=== PATIENT | male | born 1950 | race Caucasian/White ===

== ENCOUNTER 2019-01-25 03:08 | Emergency (ER) | payer OTHER ==
--- NOTE | 2019-01-25 03:49 | ER ---
Nurse's Notes [facility] Name: Damaso Campos Age: 69 yrs Sex: Male : 1950 Arrival Date: 01/25/2019 Time: 03:09 Bed 16 Private MD: Darío Mcfarlane T Diagnosis: Left facial swelling;Gingivitis;Dental Caries Presentation: 01/25 03:12 Presenting complaint: Patient states: that he is having swelling to left side of his face due to possible abscessed tooth. Transition of care: patient was not received from another setting of care. Onset of symptoms was January 24, 2019. Risk Assessment: Do you want to hurt yourself or someone else? Patient reports no desire to harm self or others. Initial Sepsis Screen: Does the patient meet any 2 criteria? HR > 90 bpm. Yes Does the patient have a suspected source of infection? No. Patient's initial sepsis screen is negative. Care prior to arrival: None. 03:12 Method Of Arrival: Ambulatory 03:12 Acuity: MYKEL 4 fc Historical: - Allergies: 03:21 Adhesives; fc - Home Meds: 03:21 triamterene-hydrochlorothiazid 37.5-25 mg Oral cap 1 cap once daily [Active]; meloxicam fc 15 mg oral tab 1 tab once daily [Active]; losartan 50 mg oral tab 1 tab once daily [Active]; - PMHx: 03:21 Hypertension; prostate cancer; Arthritis; fc - PSHx: 03:21 prostate removal; Knee surgery; Hernia repair; AVM; fc - Immunization history:: Last tetanus immunization: up to date. - Social history:: Smoking status: Patient/guardian denies using tobacco, Patient uses alcohol, occasionally. - Ebola Screening: : Patient negative for fever greater than or equal to 101.5 degrees Fahrenheit, and additional compatible Ebola Virus Disease symptoms Patient denies exposure to infectious person Patient denies travel to an Ebola-affected area in the 21 days before illness onset. Screenin:19 Abuse screen: Denies threats or abuse. Nutritional screening: No deficits noted. fc Tuberculosis screening: No symptoms or risk factors identified. Fall Risk None identified. Assessment: 03:20 General: Appears in no apparent distress. uncomfortable, Behavior is calm, cooperative, rr5 appropriate for age. Pain: Complains of pain in left side of the face Pain does not radiate. Pain currently is 3 out of 10 on a pain scale. Quality of pain is described as aching, Pain began suddenly, Is intermittent. Neuro: Level of Consciousness is awake, alert, obeys commands, Oriented to person, place, time, situation, Appropriate for age. Cardiovascular: Capillary refill < 3 seconds Patient's skin is warm and dry. Respiratory: Airway is patent Respiratory effort is even, unlabored, Respiratory pattern is regular, symmetrical. GI: No signs and/or symptoms were reported involving the gastrointestinal system. : No signs and/or symptoms were reported regarding the genitourinary system. EENT: left face swelling. Reports looks I'm having tooth abscess.. 03:20 Derm: Skin is intact, Skin temperature is warm. Musculoskeletal: Circulation, motion, rr5 and sensation intact. Capillary refill < 3 seconds, Range of motion: intact in all extremities. 04:04 Reassessment: Patient and/or family updated on plan of care and expected duration. Pain ea level reassessed. Patient is alert, oriented x 3, equal unlabored respirations, skin warm/dry/pink. Discharge instructions given to patient, verbalized the understanding of instruction. Pt left ED ambulatory accompanied by significant other. Pt tolerating well. Vital Signs: 03:12 BP 142 / 98; Pulse 91; Resp 18; Temp 98.6(TE); Pulse Ox 96% on R/A; Weight 127.01 kg fc (R); Height 6 ft. 0 in. (182.88 cm) (R); Pain 4/10; 03:37 BP 135 / 93; Pulse 77; Resp 19; Pulse Ox 97% on R/A; rr5 03:12 Body Mass Index 37.97 (127.01 kg, 182.88 cm) ED Course: 03:09 Patient arrived in ED. am2 03:10 Darío Mcfarlane MD is Private Physician. am2 03:12 Arm band placed on Patient placed in an exam room, on a stretcher. fc 03:18 Triage completed. fc 03:19 Patient has correct armband on for positive identification. Bed in low position. Call light in reach. 03:29 Natasha Dao RN is Primary Nurse. ea 03:32 Yuri Harris MD is Attending Physician. ps1 04:03 No provider procedures requiring assistance completed. Patient did not have IV access ea during this emergency room visit. Administered Medications: 03:46 Drug: Decadron 10 mg {Note: medication administered PO in juice.} Route: IM; Site: ea Other; 04:03 Follow up: Response: Medication administered at discharge. ea 03:47 Drug: Clindamycin 300 mg Route: PO; ea 04:03 Follow up: Response: Medication administered at discharge. ea 04:02 Drug: [place] (7.5 mg-325 mg) 1 tabs Route: PO; ea 04:03 Follow up: Response: Medication administered at discharge. ea Outcome: 03:48 Discharge ordered by MD. ps1 04:04 Discharged to home ambulatory, with significant other. ea 04:04 Condition: good 04:04 Discharge instructions given to patient, Instructed on discharge instructions, follow up and referral plans. medication usage, Demonstrated understanding of instructions, follow-up care, medications, Prescriptions given X 4. 04:06 Patient left the ED. ea Signatures: Natasha Calderon RN RN Keena Lynn Elena RN Yuri Nava ea, MD MD ps1 Roque, Raymond RN RN rr5 Corrections: (The following items were deleted from the chart) 03:37 03:20 EENT: left face swelling. rr5 rr5
--- NOTE | 2019-01-25 03:49 | EDPHYS ---
Physician Documentation [facility] Name: Damaso Campos Age: 69 yrs Sex: Male : 1950 Arrival Date: 01/25/2019 Time: 03:09 Bed 16 Private MD: Darío Mcfarlane T ED Physician Yuri Harris HPI: 01/25 03:44 This 69 yrs old Male presents to ER via Ambulatory with complaints of Abscess ps1 - face. 03:44 patient has a bad left upper tooth. Patient states that he has a facial ps1 abscess/swelling in the left face. Pain is mild to moderate and feels like fullness. No fever or cellulitic changes. No identifiable abscess or gumline changes. No fever. . Historical: - Allergies: 03:21 Adhesives; fc - Home Meds: 03:21 triamterene-hydrochlorothiazid 37.5-25 mg Oral cap 1 cap once daily [Active]; meloxicam fc 15 mg oral tab 1 tab once daily [Active]; losartan 50 mg oral tab 1 tab once daily [Active]; - PMHx: 03:21 Hypertension; prostate cancer; Arthritis; fc - PSHx: 03:21 prostate removal; Knee surgery; Hernia repair; AVM; fc - Immunization history:: Last tetanus immunization: up to date. - Social history:: Smoking status: Patient/guardian denies using tobacco, Patient uses alcohol, occasionally. - Ebola Screening: : Patient negative for fever greater than or equal to 101.5 degrees Fahrenheit, and additional compatible Ebola Virus Disease symptoms Patient denies exposure to infectious person Patient denies travel to an Ebola-affected area in the 21 days before illness onset. ROS: 03:44 Constitutional: Negative for fever, chills, and weight loss, Eyes: Negative for injury, ps1 pain, redness, and discharge, Cardiovascular: Negative for chest pain, palpitations, and edema, Respiratory: Negative for shortness of breath, cough, wheezing, and pleuritic chest pain, Abdomen/GI: Negative for abdominal pain, nausea, vomiting, diarrhea, and constipation, MS/Extremity: Negative for injury and deformity, Skin: Negative for injury, rash, and discoloration, Neuro: Negative for headache, weakness, numbness, tingling, and seizure. 03:44 ENT: Positive for Gum pain left facial swelling. Exam: 03:44 Constitutional: This is a well developed, well nourished patient who is awake, alert, ps1 and in no acute distress. Head/Face: Normocephalic, atraumatic. Eyes: Pupils equal round and reactive to light, extra-ocular motions intact. Lids and lashes normal. Conjunctiva and sclera are non-icteric and not injected. Chest/axilla: Normal chest wall appearance and motion. Nontender with no deformity. No lesions are appreciated. Cardiovascular: Regular rate and rhythm. No gallops, murmurs, or rubs. Normal PMI, no JVD. No pulse deficits. Respiratory: Lungs have equal breath sounds bilaterally, clear to auscultation and percussion. No rales, rhonchi or wheezes noted. No increased work of breathing, no retractions or nasal flaring. Abdomen/GI: Soft, non-tender, with normal bowel sounds. No distension or tympany. No guarding or rebound. No evidence of tenderness throughout. MS/ Extremity: Pulses equal, no cyanosis. Neurovascular intact. Full, normal range of motion. Neuro: Awake and alert, GCS 15, oriented to person, place, time, and situation. Cranial nerves II-XII grossly intact. Sensory grossly intact. 03:44 ENT: External ear(s): are unremarkable, Nose: is normal, Mouth: Oral mucosa: normal, abscess, is not appreciated, Dental exam: dental caries, that is moderate, left facial swelling. . Vital Signs: 03:12 BP 142 / 98; Pulse 91; Resp 18; Temp 98.6(TE); Pulse Ox 96% on R/A; Weight 127.01 kg fc (R); Height 6 ft. 0 in. (182.88 cm) (R); Pain 4/10; 03:37 BP 135 / 93; Pulse 77; Resp 19; Pulse Ox 97% on R/A; rr5 03:12 Body Mass Index 37.97 (127.01 kg, 182.88 cm) fc MDM: MDM: 03:41 Patient medically screened. ps1 03:44 Data reviewed: vital signs, nurses notes, and as a result, I will discharge patient. ps1 Counseling: I had a detailed discussion with the patient and/or guardian regarding: the presence of at least one elevated blood pressure reading (>120/80) during this emergency department visit, the need for outpatient follow up, for definitive care, a dentist, to return to the emergency department if symptoms worsen or persist or if there are any questions or concerns that arise at home. Administered Medications: 03:46 Drug: Decadron 10 mg {Note: medication administered PO in juice.} Route: IM; Site: ea Other; 04:03 Follow up: Response: Medication administered at discharge. ea 03:47 Drug: Clindamycin 300 mg Route: PO; ea 04:03 Follow up: Response: Medication administered at discharge. ea 04:02 Drug: [place] (7.5 mg-325 mg) 1 tabs Route: PO; ea 04:03 Follow up: Response: Medication administered at discharge. ea Disposition: 01/25/19 03:48 Discharged to Home. Impression: Left facial swelling, Gingivitis, Dental Caries. - Condition is Stable. - Discharge Instructions: Skin Abscess. - Prescriptions for chlorhexidine gluconate 0.12 % Mucous Membrane mouthwash - place 15 milliliter by MUCOUS MEMBRANE route 2 times per day for 14 days after brushing teeth, swish in mouth for 30 seconds then spit out; 1 bottle. Clindamycin HCl 300 mg Oral Capsule - take 1 capsule by ORAL route every 6 hours for 10 days; 40 capsule. Tylenol- Codeine #3 300-30 mg Oral Tablet - take 2 tablet by ORAL route every 6 hours As needed; 30 tablet. Zofran 4 mg Oral Tablet - take 1 tablet by ORAL route every 12 hours As needed; 20 tablet. - Medication Reconciliation Form, Thank You Letter, Antibiotic Education, Prescription Opioid Use form. - Follow up: Private Physician; When: As needed; Reason: Further diagnostic work-up, Recheck today's complaints, Continuance of care, Re-evaluation by your physician. Follow up: Emergency Department; When: As needed; Reason: Fever > 102 F, Worsening of condition. - Problem is new. - Symptoms are unchanged. Signatures: Natasha Calderon RN RN fc Antunez, Elena, RN RN ea Singer, Phillip, MD MD ps1 Corrections: (The following items were deleted from the chart) 04:06 03:48 01/25/2019 03:48 Discharged to Home. Impression: Left facial swelling; ea Gingivitis; Dental Caries. Condition is Stable. Forms are Medication Reconciliation Form, Thank You Letter, Antibiotic Education, Prescription Opioid Use. Follow up: Private Physician; When: As needed; Reason: Further diagnostic work-up, Recheck today's complaints, Continuance of care, Re-evaluation by your physician. Follow up: Emergency Department; When: As needed; Reason: Fever > 102 F, Worsening of condition. Problem is new. Symptoms are unchanged. ps1
[2019-01-25] MEDS ORDERED: DEXAMETHASONE 10 MG/ML VIAL ONE (03:58)
[2019-01-25] MEDS ORDERED: CLINDAMYCIN HCL 150 MG CAP ONE (03:58)
[2019-01-25] MEDS ORDERED: HYDROCODONE/APAP 7.5/325 MG TAB ONE (04:16)
[2019-01-25 05:29] VITALS: TEMP 98.6
[2019-01-25 05:30] VITALS: BP 135/93; O2SAT 97
== END 2019-01-25 04:06 | disposition home or self-care (01) ==
LOC: ER 03:08
DX: K05.10 Chronic gingivitis, plaque induced (principal); K02.9 Dental caries, unspecified; I10 Essential (primary) hypertension; Z85.46 Personal history of malignant neoplasm of prostate; Z91.048 Other nonmedicinal substance allergy status
CPT/HCPCS: 96372; 99283; J1100

== ENCOUNTER 2020-09-14 16:32 | Inpatient (IN) | payer OTHER ==
--- NOTE | 2020-09-14 21:03 | RAD REPORT ---
EXAM DESCRIPTION: Marti Single View09/14/2020 7:36 pm CLINICAL HISTORY: Shortness of breath COMPARISON: 2013 FINDINGS: Mild to moderate bilateral pulmonary opacities The heart is normal size IMPRESSION: Mild to moderate bilateral pulmonary opacities probably pneumonia
[2020-09-14] MEDS ORDERED: NA CHLORIDE 0.9% 50 ML ONE (22:02)
[2020-09-14] MEDS ORDERED: dexAMETHasone 10 MG/ML VIAL ONE (22:02)
[2020-09-14] MEDS ORDERED: LEVALBUTEROL 1.25 MG/3 ML NEB ONE (22:02)
[2020-09-14 22:24] LABS: Absolute Lymphocytes (CBC) 0.8 K/uL (0.7-4.9); Basophils % 0.4 % (0-1.3); Lymphocytes % 11.2 % (15.3-44.8); MPV 9.2 fL (7.6-11.3); RBC Red Blood Cell Count 4.41 M/uL (4.33-5.43)
[2020-09-14 22:39] LABS: Albumin 3.4 g/dL (3.4-5.0); Bilirubin Total 0.9 mg/dL (0.2-1.0); Potassium 3.6 mmol/L (3.5-5.1); Protein, Total 7.9 g/dL (6.4-8.2)
[2020-09-14] MEDS ORDERED: NA CHLORIDE 0.9% 1,000 ML ONE (23:12)
--- NOTE | 2020-09-14 23:58 | ER ---
Nurse's Notes [facility] Name: Damaso Campos Age: 70 yrs Sex: Male : 1950 Arrival Date: 09/14/2020 Time: 16:36 Bed 20 Private MD: Darío Mcfarlane T Diagnosis: Coronavirus infection, unspecified;Hypoxia Presentation: 09/14 16:45 Chief complaint: Patient states: SOB on exertion and dry cough. Pt states "my oxygen is aa5 at 90-91% when I am just sitting but getting up and walking it goes down to 89% and I feel short of breath". Pt reports positive COVID-19 2 days ago. Coronavirus screen: cough unrelated to allergies, shortness of breath, Client presents with at least one sign or symptom that may indicate coronavirus-19. Standard/surgical mask placed on the client. Provider contacted for isolation considerations. Ebola Screen: Patient negative for fever greater than or equal to 101.5 degrees Fahrenheit, and additional compatible Ebola Virus Disease symptoms. Initial Sepsis Screen: Does the patient meet any 2 criteria? No. Patient's initial sepsis screen is negative. Does the patient have a suspected source of infection? Yes:. Risk Assessment: Do you want to hurt yourself or someone else? Patient reports no desire to harm self or others. Onset of symptoms was August 2020. 16:45 Acuity: MYKEL 3 aa5 16:45 Method Of Arrival: Wheelchair aa5 Historical: - Allergies: 16:49 Adhesives; aa5 - PMHx: 16:49 Arthritis; Hypertension; Prostate Cancer; aa5 - PSHx: 16:49 prostate removal; Knee surgery; Hernia repair; Arterial Vascular Malformation; aa5 - Immunization history:: Pneumococcal vaccine is not up to date, Flu vaccine is up to date. - Social history:: Smoking status: Patient denies any tobacco usage or history of. Screenin:17 Abuse screen: Denies threats or abuse. Denies injuries from another. Nutritional zb screening: No deficits noted. Tuberculosis screening: No symptoms or risk factors identified. Fall Risk None identified. Assessment: 22:00 General: Appears in no apparent distress. uncomfortable, Behavior is calm, cooperative, zb appropriate for age, Reports fever for > 3 days, feeling ill for > 3 days, fatigue for >3 days. Pain: Denies pain. Neuro: Level of Consciousness is awake, alert, obeys commands, Oriented to person, place, time, situation. Cardiovascular: Capillary refill < 3 seconds in bilateral fingers Patient's skin is warm and dry. Respiratory: Airway is patent Respiratory effort is even, unlabored, Respiratory pattern is tachypnea Breath sounds are diminished bilaterally. GI: Abdomen is round non-distended, obese, Reports diarrhea. : No signs and/or symptoms were reported regarding the genitourinary system. EENT: No signs and/or symptoms were reported regarding the EENT system. Derm: Skin is intact, is healthy with good turgor, Skin is dry, Skin is flushed, Skin temperature is warm. Musculoskeletal: Circulation, motion, and sensation intact. Capillary refill < 3 seconds, in bilateral fingers. Range of motion: intact in all extremities. 22:36 Reassessment: notified ECP of [facility] 547. zb 22:53 Reassessment: CL 84 laboratory radha called, ED provider aware. rr5 23:56 Reassessment: Patient appears in no apparent distress at this time. Patient and/or em family updated on plan of care and expected duration. Pain level reassessed. patient nc increased to 4L. desats to 88% on 3L. ECP notified. 09/15 00:10 Reassessment: Patient appears in no apparent distress at this time. Patient and/or em family updated on plan of care and expected duration. Pain level reassessed. placed on 5 LPM via NC SPO2 90-93%, denies shortness of breath. 01:30 Reassessment: Patient appears in no apparent distress at this time. Patient is alert, rr5 oriented x 3, equal unlabored respirations, skin warm/dry/pink. Vital Signs: 09/14 16:45 BP 107 / 65; Pulse 70; Resp 18 S; Temp 98.2(O); Pulse Ox 93% on R/A; Weight 133.81 kg aa5 (R); Height 5 ft. 11 in. (180.34 cm) (R); Pain 0/10; 22:19 BP 123 / 74; Pulse 72; Resp 20; Pulse Ox 93% ; zb 23:31 BP 123 / 53; Pulse 91; Resp 30; Pulse Ox 77% on R/A; dh4 23:57 Pulse 66; Resp 28; Pulse Ox 91% 4 lpm ; em 09/15 01:42 BP 143 / 81; Pulse 73; Resp 19; Pulse Ox 95% on 4 lpm NC; rr5 09/14 16:45 Body Mass Index 41.14 (133.81 kg, 180.34 cm) aa5 ED Course: 09/14 16:36 Patient arrived in ED. ag5 16:38 Darío Mcfarlane MD is Private Physician. ag5 16:45 Arm band placed on. aa5 16:47 Triage completed. aa5 20:08 Chest Single View XRAY In Process Unspecified. EDMS 21:04 Jeffy Martinez PA is PHCP. m 21:04 Harsha Haque MD is Attending Physician. jmm 21:08 Mai Flores RN is Primary Nurse. zb 22:17 Patient has correct armband on for positive identification. Pulse ox on. NIBP on. Door zb closed. Noise minimized. Warm blanket given. 22:17 Inserted saline lock: 20 gauge in left antecubital area, using aseptic technique. Blood zb collected. 23:15 CT Chest For PE Angio In Process Unspecified. EDMS 23:57 [facility] Abraham [facility] Hospitalizing Provider[facility] 09/15 01:50 No provider procedures requiring assistance completed. Patient admitted, IV remains in rr5 place. intact, No redness/swelling at site. Administered Medications: 09/14 22:16 Drug: Decadron - Dexamethasone 10 mg Route: IVP; Site: left antecubital; b 09/15 00:00 Follow up: Response: No adverse reaction em 09/14 22:16 Drug: Xopenex (3) 1.25 mg Route: Inhalation; zb 09/15 00:00 Follow up: Response: No adverse reaction em 09/14 23:56 Drug: NS 0.9% 1000 ml Route: IV; Rate: 1 bolus; Site: left antecubital; em 09/15 01:48 Follow up: IV Status: Completed infusion; IV Intake: 1000ml em Intake: 01:48 IV: 1000ml; Total: 1000ml. em Outcome: 09/14 23:58 Decision to Hospitalize by Provider. [facility] 09/15 01:43 Admitted to Tele accompanied by nurse, via wheelchair, room 414, with oxygen, with rr5 chart, Report called to mario Condition: stable Instructed on the need for admit. 01:55 Patient left the ED. rr5 Signatures: Dispatcher [employer] Jeffy Randall PA PA jmm Munoz, Edgar, RN RN Park Kaplan RN RN aa5 José Manuel Belle RN RN rr5 Rosaura Suarez Bryce Ngo [facility] Mai Flores RN RN zb
--- NOTE | 2020-09-14 23:58 | EDPHYS ---
Physician Documentation [facility] Name: Damaso Campos Age: 70 yrs Sex: Male : 1950 Arrival Date: 09/14/2020 Time: 16:36 Bed 20 Private MD: Darío Mcfarlane T ED Physician Harsha Haque HPI: 09/14 18:57 This 70 yrs old Male presents to ER via Wheelchair with complaints of jmm Shortness Of Breath, COVID+. 18:57 The patient has shortness of breath at rest. Onset: The symptoms/episode began/occurred jmm gradually, 2 day(s) ago. Duration: The symptoms are continuous. The patient's shortness of breath is aggravated by nothing, is alleviated by nothing. This is a 70 year old male with a history of HTN that presents to the ED with complaints of shortness of breath beginning approx 2 days ago. Positive for COVID. Patient is currently taking prednisone and azithromycin. . Historical: - Allergies: 16:49 Adhesives; aa5 - PMHx: 16:49 Arthritis; Hypertension; Prostate Cancer; aa5 - PSHx: 16:49 prostate removal; Knee surgery; Hernia repair; Arterial Vascular Malformation; aa5 - Immunization history:: Pneumococcal vaccine is not up to date, Flu vaccine is up to date. - Social history:: Smoking status: Patient denies any tobacco usage or history of. ROS: 18:57 Constitutional: Negative for fever, chills, and weight loss, Cardiovascular: Negative jmm for chest pain, palpitations, and edema. 18:57 Respiratory: Positive for cough, shortness of breath. 18:57 All other systems are negative. Exam: 18:57 Constitutional: This is a well developed, well nourished patient who is awake, alert, jmm and in no acute distress. Head/Face: atraumatic. Eyes: EOMI, no conjunctival erythema appreciated ENT: Moist Mucus Membranes Neck: Trachea midline, Supple Chest/axilla: Normal chest wall appearance and motion. Cardiovascular: Regular rate and rhythm. No edema appreciated Respiratory: Normal respirations, no respiratory distress appreciated Abdomen/GI: Non distended, soft Back: Normal ROM Skin: General appearance color normal MS/ Extremity: Moves all extremities, no obvious deformities appreciated, no edema noted to the lower extremities Neuro: Awake and alert, normal gait Psych: Behavior is normal, Mood is normal, Patient is cooperative and pleasant Vital Signs: 16:45 BP 107 / 65; Pulse 70; Resp 18 S; Temp 98.2(O); Pulse Ox 93% on R/A; Weight 133.81 kg aa5 (R); Height 5 ft. 11 in. (180.34 cm) (R); Pain 0/10; 22:19 BP 123 / 74; Pulse 72; Resp 20; Pulse Ox 93% ; zb 23:31 BP 123 / 53; Pulse 91; Resp 30; Pulse Ox 77% on R/A; dh4 23:57 Pulse 66; Resp 28; Pulse Ox 91% 4 lpm ; em 09/15 01:42 BP 143 / 81; Pulse 73; Resp 19; Pulse Ox 95% on 4 lpm NC; rr5 09/14 16:45 Body Mass Index 41.14 (133.81 kg, 180.34 cm) aa5 MDM: 09/14 21:10 Patient medically screened. jagjit 23:54 Data reviewed: vital signs, nurses notes. Counseling: I had a detailed discussion with jagjit the patient and/or guardian regarding: the historical points, exam findings, and any diagnostic results supporting the discharge/admit diagnosis, lab results, radiology results. ED course: I discussed the patient with Anmol Hamilton whom accepted the patient to Dr. Abraham's service. . 09/14 21:17 Order name: CBC with Diff [facility] 09/14 21:17 Order name: CMP; Complete Time: 22:52 [facility] 09/14 21:17 Order name: Procalcitonin; Complete Time: 22:52 [facility] 09/14 21:17 Order name: Lactate [facility] 09/14 21:17 Order name: D-Dimer [facility] 09/14 22:24 Order name: CBC with Automated Diff; Complete Time: 22:31 [facility] 09/14 18:56 Order name: Chest Single View XRAY; Complete Time: 21:13 [facility] 09/14 21:17 Order name: Saline Lock; Complete Time: 22:17 [facility] 09/14 22:32 Order name: Lactate; Complete Time: 22:36 [facility] 09/14 22:33 Order name: D-Dimer; Complete Time: 22:36 [facility] 09/14 22:48 Order name: CT Chest For PE Angio [facility] 09/14 23:54 Order name: O2 Per Protocol; Complete Time: 23:55 [facility] Administered Medications: 22:16 Drug: Decadron - Dexamethasone 10 mg Route: IVP; Site: left antecubital; 09/15 00:00 Follow up: Response: No adverse reaction em 09/14 22:16 Drug: Xopenex (3) 1.25 mg Route: Inhalation; 09/15 00:00 Follow up: Response: No adverse reaction em 09/14 23:56 Drug: NS 0.9% 1000 ml Route: IV; Rate: 1 bolus; Site: left antecubital; em 09/15 01:48 Follow up: IV Status: Completed infusion; IV Intake: 1000ml em Disposition: 02:17 Co-signature as Attending Physician, Harsha Haque MD. rn Disposition: 09/14/20 23:58 Hospitalization ordered by Roly Abraham for Observation. Preliminary diagnosis are Coronavirus infection, unspecified, Hypoxia. - Bed requested for Telemetry/MedSurg (observation). - Status is Observation. rr5 - Condition is Stable. - Problem is new. - Symptoms are unchanged. Signatures: Dispatcher [employer] EDJeffy Gary PA PA jmm Munoz, Edgar, RN RN em Harsha Haque MD MD rn Calderon, Audri RN RN aa5 Marcela Javier RN RN tl1 José Manuel Belle, RN RN rr5 Mai Flores RN RN zb Corrections: (The following items were deleted from the chart) 00:54 09/14 23:58 Hospitalization Ordered by Roly Abraham for Observation. Preliminary tl1 diagnosis is Coronavirus infection, unspecified; Hypoxia. Bed requested for Telemetry/MedSurg (observation). Status is Observation. Condition is Stable. Problem is new. Symptoms are unchanged. [facility] 09/15 01:55 00:54 09/14/2020 23:58 Hospitalization Ordered by Roly Abraham for Observation. rr5 Preliminary diagnosis is Coronavirus infection, unspecified; Hypoxia. Bed requested for Telemetry/MedSurg (observation). Status is Observation. Condition is Stable. Problem is new. Symptoms are unchanged. tl1
[2020-09-15] MEDS ORDERED: ACETAMINOPHEN 325 MG TABLET PO PRN (02:19)
[2020-09-15] MEDS ORDERED: IVERMECTIN 3 MG TABLET PO ONE ×2 (02:19→15:00)
[2020-09-15 02:32] VITALS: BMI 42.3
--- NOTE | 2020-09-15 03:15 | P.HP ---
Certification for Inpatient Patient admitted to: Inpatient With expected LOS: >2 Midnights Patient will require the following post-hospital care: None Practitioner: I am a practitioner with admitting privileges, knowledge of patient current condition, hospital course, and medical plan of care. Services: Services provided to patient in accordance with Admission requirements found in Title 42 Section 412.3 of the Code of Federal Regulations <AlfonsoBradford - Last Filed: 09/15/20 03:07> Patient History Date of Service: 09/15/20 Primary Care Provider: Dr. Mcfarlane Reason for admission: COVID pneumonia, hyponatremia History of Present Illness: Mr. Campos is a 70 yo M with HTN, arthritis, and h/o of prostate cancer here today for COVID+. His symptoms started 09/06 and he tested positive 09/12. He has been having diarrhea, cough, and fever, and O2 saturations have been 89% with exertion at home. He finished a 5 day course of azithromycin and has been taking prednisone of unknown dosage for 2 days. In room, he is saturating 94% on 5L of O2. CXR reveals COVID pneumonia. Of note, he is hyponatremic with a Na+ of 120, currently asymptomatic. He reports polydipsia, and has drunk a total of 5 cases of water at home. He is on triamterene/HCTZ and losartan at home for HTN control. Other labs: K 3.6, Cl 84, HCO3 25, BUN 13, Cr 0.97, Glu 106. Hgb/Hct 14.0/39.0. WBC 6.9, Plt 204. DD 547. Procal 0.18. Home medications list reviewed: No - Past Medical/Surgical History Has patient received pneumonia vaccine in the past: No Diabetic: No -: htn -: History of prostate cancer -: arthritis -: lens implant left eye 2000 -: total right knee replaced 2009 -: prostate surg.2002 -: [facility]-brain surg age 6 - Family History Mother -: Heart disease - Social History Smoking Status: Never smoker Counseled patient to stop smoking for: less than 10 minutes Smoking therapy provided: No Alcohol use: No CD- Drugs: No Caffeine use: No Place of Residence: Home <Bradford Hamilton - Last Filed: 09/15/20 03:07> Date of Service: 09/15/20 - Family History Mother -: Cancer Brother -: Diabetes <carlos mcelroy - Last Filed: 09/15/20 18:04> Allergies adhesive tape Adverse Reaction (Uncoded 02/25/14 10:06) Itching/Hives/Rash Home Medications: Triamterene/Hydrochlorothiazid [Triamterene-Hctz 37.5-25 mg Cp] 1 tab PO DAILY WITH BREAKFAST 02/25/14 Albuterol Sulfate [Albuterol Sulfate Hfa] 2 puff IH Q6HP PRN 09/15/20 Benzonatate [Tessalon Perle*] 200 mg PO TIDP PRN 09/15/20 Meloxicam [Mobic] 15 mg PO DAILY 09/15/20 Valsartan 1 tab PO DAILY 09/15/20 predniSONE [Deltasone] 10 mg PO BID 09/15/20 Review of Systems General: Fever, As per HPI Eyes: Unremarkable ENT: Unremarkable Respiratory: Cough, Shortness of Breath, SOB with Excertion, As per HPI Cardiovascular: Unremarkable Gastrointestinal: Diarrhea, As per HPI Musculoskeletal: Unremarkable Integumentary: Unremarkable Neurological: Unremarkable Lymphatics: Unremarkable <Bradford Hamilton - Last Filed: 09/15/20 03:07> Physical Examination - Vital Signs Temperature: 97.4 F Blood Pressure: 133/72 Pulse: 77 Respirations: 22 Pulse Ox (%): 91 - Physical Exam General: Alert, In no apparent distress, Oriented x3, Cooperative HEENT: Atraumatic, Normocephalic, PERRLA, Mucous membr. moist/pink, EOMI Neck: Supple, 2+ carotid pulse no bruit, JVD not distended, No Thyromegaly, No LAD Respiratory: Normal air movement, Friction rub (bilateral lower lobes) Cardiovascular: No edema, Normal pulses, Regular rate/rhythm, Normal S1 S2, No gallops, No rubs, No murmurs Capillary refill: <2 Seconds Gastrointestinal: Normal bowel sounds, Soft and benign, Non-distended, No tenderness, No masses Musculoskeletal: No clubbing, No swelling, No erythema, No tenderness Integumentary: No rashes, No breakdown, No tenderness/swelling, No erythema Neurological: Normal speech, Normal strength at 5/5 x4 extr, Normal tone, Sensation intact, Cranial nerves 3-12 intact, Normal affect Lymphatics: No axilla or inguinal lymphadenopathy - Studies Laboratory Data (last 24 hrs) 09/14/20 22:00: Sodium 120 L, Potassium 3.6, BUN 13, Creatinine 0.97, Glucose 106, Total Bilirubin 0.9, AST 151 H, ALT 94 H, Alkaline Phosphatase 70 09/14/20 22:00: WBC 6.90, Hgb 14.0, Hct 39.0 L, Plt Count 204 <Bradford Hamilton - Last Filed: 09/15/20 03:07> - Studies Laboratory Data (last 24 hrs) 09/14/20 22:00: Sodium 120 L, Potassium 3.6, BUN 13, Creatinine 0.97, Glucose 106, Total Bilirubin 0.9, AST 151 H, ALT 94 H, Alkaline Phosphatase 70 09/14/20 22:00: WBC 6.90, Hgb 14.0, Hct 39.0 L, Plt Count 204 <carlos mcelroy - Last Filed: 09/15/20 18:04> Assessment and Plan - Problems (Diagnosis) (1) Pneumonia due to COVID-19 virus Onset Date: ~09/15/20 Current Visit: Yes Status: Acute Plan: - vitamin D, thiamine, zinc, vitamin C - Solu-Medrol - DVT prophylaxis, DD of 547 - Ivermectin 18mg - Pepcid - Melatonin - Pulm and respiratory therapy consulted for daily saturations, saturation for home O2 and titration of O2 (2) COVID-19 Onset Date: ~09/12/20 Current Visit: Yes Status: Acute Plan: see covid pneumonia for plan (3) Hyponatremia Onset Date: ~09/15/20 Current Visit: Yes Status: Acute Plan: likely primary polydipsia but must consider SIADH vs HCTZ use - will obtain serum and urine osmolality - will fluid restrict - will obtain another Na+ and monitor closely for symptom onset requiring more aggressive treatment - on triamterene/HCTZ outpatient (4) Hypertension Current Visit: Yes Status: Chronic Plan: BP 107/65. Currently well controlled. Will continue to monitor. Qualifiers: Hypertension type: essential hypertension Qualified Code(s): I10 - Essential (primary) hypertension Discharge Plan: Home Plan to discharge in: Greater than 2 days - Advance Directives Does patient have a Living Will: No Does patient have a Durable POA for Healthcare: No - Code Status/Comfort Care Code Status Assessed: No Critical Care: No Time Spent Managing Pts Care (In Minutes): 70 <Bradford Hamilton - Last Filed: 09/15/20 03:07> Physician Review: Patient Assessed, Agree with Above Assessment and Plan Physician Review Additional Text: COVID pneumonia. Acute respiratory failure secondary to hypoxia. Plan IV with IV steroid Titrate oxygen. Pulmonary consult. <carlos mcelroy - Last Filed: 09/15/20 18:04>
[2020-09-15] MEDS ORDERED: INFLUENZA VACCINE (for 3y+) 0.5 ML DOSE IMVAC ONE (08:00)
[2020-09-15] MEDS: APIXABAN 2.5 MG TABLET PO SCH ×2 (08:27→20:29)
[2020-09-15] MEDS: VITAMIN D 5,000 UNIT CAP PO SCH (08:27)
[2020-09-15] MEDS: ZINC SULFATE 220 MG CAP PO SCH (08:27)
[2020-09-15] MEDS: ASCORBIC ACID 500 MG TABLET PO SCH ×4 (08:27→20:29)
[2020-09-15] MEDS: FAMOTIDINE 20 MG/2 ML VIAL IV SCH ×2 (08:27→20:28)
[2020-09-15] MEDS ORDERED: METHYLPREDNISOLONE 40 MG INJ IV SCH (09:00)
--- NOTE | 2020-09-15 11:58 | RAD REPORT ---
EXAM DESCRIPTION: CT - Chest For Pe Angio - 09/15/2020 6:22 am CLINICAL HISTORY: The patient is 70 years old and is Male; SOB, elevated d-dimer TECHNIQUE: Axial computed tomographic angiography images of the chest with intravenous contrast. S agittal and coronal reformatted images were created and reviewed. This CT exam was performed using one or more of the following dose reduction techniques: automated exposure control, adjustment of t he mA and/or kV according to patient size, and/or use of iterative reconstruction technique. MIP reconstructed images were created and reviewed. COMPARISON: No relevant prior studies available. FINDINGS: ARTIFACTS: The exam is suboptimal secondary to motion artifact. PULMONARY ARTERIES: The main pulmonary arteries and proximal segmental branches opacify normally and are without filling defect. AORTA: No acute findings. No thoracic aortic aneurysm. LUNGS: Patchy groundglass infiltrates are present throughout the lungs, specifically peripherall y. Associated intralobular thickening is noted. No mass. PLEURAL SPACE: Unremarkable. No significant effusion. No pneumothorax. HEART: Unremarkable. No cardiomegaly. No significant pericardial effusion. No evidence of RV dysfunction. BONES/JOINTS: Mild multilevel degenerative change of the spine is present. No acute fracture. No dislocation. SOFT TISSUES: Unremarkable. LYMPH NODES: Unremarkable. No enlarged lymph nodes. LIVER: There is a diffuse decrease in hepatic parenchymal density, consistent with fatty infiltr ation. IMPRESSION: 1. The main pulmonary arteries and proximal segmental branches opacify normally and ar e without filling defect. The remainder of the pulmonary vessels are inadequately evaluated seconda ry to motion artifact. 2. Commonly reported imaging features of (COVID-19 or viral) pneumonia are present. Other processes such as influenza pneumonia and organizing pneumonia, as can be seen with drug toxicity and connecti ve tissue disease, can cause a similar imaging pattern. [id number] Electronically signed by: Ivana Landaverde MD 09/14/2020 11:33 PM DRESSING MACHINE OPERATOR Due to temporary technical issues with the PACS/Fluency reporting system, reports are being signed by the in house radiologist without review as a courtesy to ensure prompt reporting. The interpreting r adiologist is fully responsible for the content of the report.
--- NOTE | 2020-09-15 12:53 | P.CNS ---
Date of Consult: 09/15/20 Primary Care Provider: Dr. Mcfarlane Chief Complaint: COVID pneumonia, hyponatremia History of Present Illness: Patient is 70 years of age with a history of diabetes arthritis prostatic cancer is been tested positive for brooke virus his symptoms started in Aug Re a diarrhea fever cough admitted with shortness of breath hypoxemia he had finished a 5 day course of Zithromax and steroids was admitted to the hospital complaining some cough and shortness of breath Allergies adhesive tape Adverse Reaction (Uncoded 02/25/14 10:06) Itching/Hives/Rash Home Medications: Triamterene/Hydrochlorothiazid [Triamterene-Hctz 37.5-25 mg Cp] 1 tab PO DAILY WITH BREAKFAST 02/25/14 Albuterol Sulfate [Albuterol Sulfate Hfa] 2 puff IH Q6HP PRN 09/15/20 Benzonatate [Tessalon Perle*] 200 mg PO TIDP PRN 09/15/20 Meloxicam [Mobic] 15 mg PO DAILY 09/15/20 Valsartan 1 tab PO DAILY 09/15/20 predniSONE [Deltasone] 10 mg PO BID 09/15/20 - Past Medical/Surgical History Diabetic: No -: htn -: History of prostate cancer -: arthritis -: Arterial vascular malformation -: lens implant left eye 2000 -: total right knee replaced 2009 -: prostate surg.2002 -: [facility]-brain surg age 6 - Family History Mother Medical History: Cancer Brother Medical History: Diabetes - Social History Smoking Status: Never smoker Alcohol use: No CD- Drugs: No Caffeine use: No Place of Residence: Home Review of Systems General: Weakness Respiratory: Cough, Shortness of Breath Physical Examination Temp Pulse Resp BP Pulse Ox 97.6 F 70 20 120/66 88 L 09/15/20 12:00 09/15/20 12:00 09/15/20 12:00 09/15/20 12:00 09/15/20 12:00 Laboratory Data (last 24 hrs) 09/14/20 22:00: Sodium 120 L, Potassium 3.6, BUN 13, Creatinine 0.97, Glucose 106, Total Bilirubin 0.9, AST 151 H, ALT 94 H, Alkaline Phosphatase 70 09/14/20 22:00: WBC 6.90, Hgb 14.0, Hct 39.0 L, Plt Count 204 - Problems (1) Pneumonia due to COVID-19 virus Onset Date: ~09/15/20 Current Visit: Yes Status: Acute Plan: Patient is 70 years of age admitted with pneumonia due to brooke virus patient has abnormal liver function tests is hypernatremic most likely volume depletion EMS and some de liver damage from brooke virus CT scan very characteristic 0 brooke virus is no evidence of pulmonary embolism agree with present treatment with steroids in ivermectin continue to monitor possible discharge tomorrow start on half-normal saline increase steroids continue with anticoagulation
[2020-09-15] MEDS ORDERED: NACHLORIDE 0.45% 1,000 ML IV SCH (13:00)
[2020-09-15] MEDS: METHYLPREDNISOLONE 40 MG INJ IV SCH ×2 (14:13→20:28)
--- NOTE | 2020-09-15 18:06 | P.PN ---
Date of Service: 09/15/20 Patient seen sitting by the side of the bed. He denies shortness of breath at the moment. He is maintained on 4-6 L of oxygen by nasal cannula Pneumonia secondary to Covid 19 Acute respiratory failure with hypoxia. Obesity. Plan: IV steroid Pulmonary input appreciated Titrate oxygen Vitamin-C, D and zinc supplementation. Eliquis for thromboembolism prophylaxis.
[2020-09-15] MEDS: MELATONIN 5 MG TABLET PO SCH (20:28)
[2020-09-15] MEDS ORDERED: ZOLPIDEM TARTRATE 5 MG TABLET PO PRN (23:31)
[2020-09-16 00:28] LABS: Potassium 4.2 mmol/L (3.5-5.1)
[2020-09-16] MEDS ORDERED: IVERMECTIN 3 MG TABLET PO ONE (05:00)
[2020-09-16 06:14] LABS: Absolute Lymphocytes (CBC) 0.9 K/uL (0.7-4.9); Basophils % 0.3 % (0-1.3); Hematocrit 36.1 % (39.6-49.0); Lymphocytes % 7.5 % (15.3-44.8); MPV 9.2 fL (7.6-11.3); RBC Red Blood Cell Count 4.07 M/uL (4.33-5.43)
[2020-09-16 07:07] LABS: C-Reactive Protein 67.5 mg/L (<3.00); Potassium 4.1 mmol/L (3.5-5.1)
[2020-09-16 07:38] LABS: Platelet Estimate ADEQ; White Blood Cell Scan OK (OK)
[2020-09-16 07:39] LABS: Blood Morphology Comment NOT SEEN (NOT SEEN)
[2020-09-16] MEDS: APIXABAN 2.5 MG TABLET PO SCH (09:00)
[2020-09-16] MEDS: APIXABAN 5 MG TABLET PO SCH ×2 (09:48→20:08)
[2020-09-16] MEDS: METHYLPREDNISOLONE 40 MG INJ IV SCH ×3 (09:48→20:08)
[2020-09-16] MEDS: ASCORBIC ACID 500 MG TABLET PO SCH ×4 (09:48→20:08)
[2020-09-16] MEDS: FAMOTIDINE 20 MG/2 ML VIAL IV SCH ×2 (09:48→20:07)
[2020-09-16] MEDS: VITAMIN D 5,000 UNIT CAP PO SCH (09:48)
[2020-09-16] MEDS: ZINC SULFATE 220 MG CAP PO SCH (09:48)
--- NOTE | 2020-09-16 13:04 | P.PN ---
Subjective Date of Service: 09/16/20 Primary Care Provider: Dr. Mcfarlane Chief Complaint: Respiratory failure Subjective: Improving (Patient is feeling better although his quite hypoxic on high-flow oxygen 75% FiO2) Review of Systems General: Weakness Respiratory: Shortness of Breath Physical Examination - Vital Signs Temperature: 97.4 F Blood Pressure: 104/53 Pulse: 64 Respirations: 22 Pulse Ox (%): 90 Assessment & Plan - Problems (Diagnosis) (1) Pneumonia due to COVID-19 virus Onset Date: ~09/15/20 Current Visit: Yes Status: Acute Plan: Patient admitted with respiratory failure from brooke virus continue with present therapy he is on 75% FiO2 on high-flow white count elevated does have abnormal liver function tests CRP is also elevated no change in present treatment patient continues to remain hypernatremic trial of IV fluids urinary sodium he was taking diuretics at home most likely years related to volume depletion Physician Review: Patient Assessed, Agree with Above Assessment and Plan
[2020-09-16] MEDS ORDERED: NA CHLORIDE 0.9% 1,000 ML IV SCH (14:00)
--- NOTE | 2020-09-16 17:42 | P.PN ---
Subjective Date of Service: 09/16/20 Primary Care Provider: Dr. Mcfarlane Chief Complaint: Respiratory failure It appears patient is getting worse and requiring more oxygen. He has no new complaint. Physical Examination - Vital Signs Temperature: 97.4 F Blood Pressure: 104/53 Pulse: 64 Respirations: 22 Pulse Ox (%): 90 - Physical Exam General: Alert, In no apparent distress, Obese Respiratory: Diminished Cardiovascular: Regular rate/rhythm Gastrointestinal: Soft and benign, Non-distended Musculoskeletal: No swelling Integumentary: No rashes, No breakdown Neurological: Normal strength at 5/5 x4 extr Assessment And Plan - Current Problems (Diagnosis) (1) Acute respiratory failure with hypoxia Current Visit: Yes Status: Acute (2) Hyponatremia Onset Date: ~09/15/20 Current Visit: Yes Status: Acute (3) Pneumonia due to COVID-19 virus Onset Date: ~09/15/20 Current Visit: Yes Status: Acute (4) Hypertension Current Visit: Yes Status: Chronic Qualifiers: Hypertension type: essential hypertension Qualified Code(s): I10 - Essential (primary) hypertension - Plan Continue IV Solu-Medrol. Titrate oxygen Vitamin [id number] and D Zinc supplement. 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 Restrict free water to 1200 meal per day. Monitor blood chemistry to follow hyponatremia. Physician Review: Patient Assessed, Agree with Above Assessment and Plan Physician Review Additional Text: COVID pneumonia. Acute respiratory failure secondary to hypoxia. Plan IV with IV steroid Titrate oxygen. Pulmonary consult.
[2020-09-16] MEDS: MELATONIN 5 MG TABLET PO SCH (20:08)
[2020-09-16] MEDS: NA CHLORIDE 0.9% 1,000 ML IV SCH (20:08)
[2020-09-16] MEDS: FLUTICASONE 50MCG NASAL SPRAY NAS SCH (20:20)
[2020-09-17 04:22] LABS: Potassium 4.4 mmol/L (3.5-5.1)
[2020-09-17] MEDS: FLUTICASONE 50MCG NASAL SPRAY NAS SCH ×2 (10:00→20:26)
[2020-09-17] MEDS: ASCORBIC ACID 500 MG TABLET PO SCH ×4 (10:01→20:18)
[2020-09-17] MEDS: VITAMIN D 5,000 UNIT CAP PO SCH (10:01)
[2020-09-17] MEDS: METHYLPREDNISOLONE 40 MG INJ IV SCH ×3 (10:01→20:19)
[2020-09-17] MEDS: APIXABAN 5 MG TABLET PO SCH ×2 (10:02→20:18)
[2020-09-17] MEDS: FAMOTIDINE 20 MG/2 ML VIAL IV SCH ×2 (10:02→20:18)
[2020-09-17] MEDS: ZINC SULFATE 220 MG CAP PO SCH (10:41)
--- NOTE | 2020-09-17 13:11 | P.PN ---
Subjective Date of Service: 09/17/20 Primary Care Provider: Dr. Mcfarlane Chief Complaint: Respiratory failure Patient's respiratory condition is getting worse. He has known requiring high-flow oxygen. He denies shortness of breath on the high-flow oxygen. Sodium level is trending up. Physical Examination - Vital Signs Temperature: 97.4 F Blood Pressure: 109/55 Pulse: 62 Respirations: 26 Pulse Ox (%): 95 - Physical Exam General: Alert, In no apparent distress HEENT: Other (High-flow oxygen) Respiratory: Crackles/rales Cardiovascular: No edema, Regular rate/rhythm Gastrointestinal: Soft and benign, Non-distended Musculoskeletal: No swelling Integumentary: No rashes Neurological: Normal strength at 5/5 x4 extr Assessment And Plan - Current Problems (Diagnosis) (1) Acute respiratory failure with hypoxia Current Visit: Yes Status: Acute (2) Hyponatremia Onset Date: ~09/15/20 Current Visit: Yes Status: Acute (3) Pneumonia due to COVID-19 virus Onset Date: ~09/15/20 Current Visit: Yes Status: Acute (4) Hypertension Current Visit: Yes Status: Chronic Qualifiers: Hypertension type: essential hypertension Qualified Code(s): I10 - Essential (primary) hypertension - Plan Continue IV Solu-Medrol. Patient currently on high-flow oxygen. He agrees to convalescent plasma transfusion. 1 unit requested for transfuse. Also started patient on Remdesivir. Continue Vitamin [id number]-[id number] and D Contain Zinc supplementation. 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 Sodium level is improving with current measures. Restrict free water to 1200 meal per day. Monitor blood chemistry to follow hyponatremia.
[2020-09-17] MEDS: NA CHLORIDE 0.9% 1,000 ML IV SCH (18:23)
[2020-09-17] MEDS: MELATONIN 5 MG TABLET PO SCH (20:18)
[2020-09-18 06:00] LABS: Absolute Lymphocytes (CBC) 0.5 K/uL (0.7-4.9); Basophils % 0.1 % (0-1.3); Hematocrit 37.4 % (39.6-49.0); Lymphocytes % 4.2 % (15.3-44.8); MPV 8.3 fL (7.6-11.3); RBC Red Blood Cell Count 4.14 M/uL (4.33-5.43)
[2020-09-18 06:16] LABS: Potassium 4.5 mmol/L (3.5-5.1)
[2020-09-18] MEDS: FLUTICASONE 50MCG NASAL SPRAY NAS SCH ×2 (09:00→21:29)
[2020-09-18] MEDS: METHYLPREDNISOLONE 125 MG INJ IV SCH ×3 (09:00→21:28)
[2020-09-18] MEDS: APIXABAN 5 MG TABLET PO SCH ×2 (09:07→21:28)
[2020-09-18] MEDS: ZINC SULFATE 220 MG CAP PO SCH (09:07)
[2020-09-18] MEDS: FAMOTIDINE 20 MG/2 ML VIAL IV SCH ×2 (09:07→21:28)
[2020-09-18] MEDS: VITAMIN D 5,000 UNIT CAP PO SCH (09:07)
[2020-09-18] MEDS: ASCORBIC ACID 500 MG TABLET PO SCH ×4 (09:07→21:29)
--- NOTE | 2020-09-18 11:00 | P.PN ---
Subjective Date of Service: 09/18/20 Primary Care Provider: Dr. Mcfarlane Chief Complaint: Respiratory failure Subjective: Improving (Patient is feeling better still hypoxic) Review of Systems General: Weakness Respiratory: Shortness of Breath Physical Examination - Vital Signs Temperature: 97.5 F Blood Pressure: 119/57 Pulse: 72 Respirations: 22 Pulse Ox (%): 90 - Physical Exam General: Alert, In no apparent distress, Oriented x3 Respiratory: Clear to auscultation bilaterally Assessment & Plan - Problems (Diagnosis) (1) Pneumonia due to COVID-19 virus Onset Date: ~09/15/20 Current Visit: Yes Status: Acute Plan: Respiratory failure from brooke virus sees clinically improving continue to wean done on oxygen Dc IV fluids Physician Review: Patient Assessed, Agree with Above Assessment and Plan
--- NOTE | 2020-09-18 12:14 | P.PN ---
Subjective Date of Service: 09/18/20 Primary Care Provider: Dr. Mcfarlane Chief Complaint: Respiratory failure No major changes from yesterday He is requiring high-flow oxygen. He denies shortness of breath on the high-flow oxygen. Sodium level has trended up and almost normal. Physical Examination - Vital Signs Temperature: 97.5 F Blood Pressure: 119/57 Pulse: 72 Respirations: 22 Pulse Ox (%): 90 - Physical Exam General: Alert, In no apparent distress HEENT: Other (High-flow oxygen) Respiratory: Diminished Cardiovascular: No edema, Regular rate/rhythm Gastrointestinal: Soft and benign, Non-distended Musculoskeletal: No swelling Integumentary: No rashes Neurological: Other (No focal motor deficit.) Assessment And Plan - Current Problems (Diagnosis) (1) Acute respiratory failure with hypoxia Current Visit: Yes Status: Acute (2) Hyponatremia Onset Date: ~09/15/20 Current Visit: Yes Status: Acute (3) Pneumonia due to COVID-19 virus Onset Date: ~09/15/20 Current Visit: Yes Status: Acute (4) Hypertension Current Visit: Yes Status: Chronic Qualifiers: Hypertension type: essential hypertension Qualified Code(s): I10 - Essential (primary) hypertension - Plan Continue IV Solu-Medrol. Patient currently on high-flow oxygen. Status post convalescent plasma transfusion. Start Remdesivir. Continue Vitamin [id number]-[id number] and D Contain Zinc supplementation. 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 Sodium level has improved with current measures. Restrict free water to 1200 meal per day. Discontinue IV fluid. Monitor blood chemistry to follow hyponatremia.
[2020-09-18] MEDS ORDERED: Remdesivir 200 MG in NA CHLORIDE 0.9% 250 ML IV ONE (15:00)
[2020-09-18] MEDS: MELATONIN 5 MG TABLET PO SCH (21:28)
[2020-09-19 04:04] LABS: Absolute Lymphocytes (CBC) 0.7 K/uL (0.7-4.9); Basophils % 0.3 % (0-1.3); Hematocrit 36.2 % (39.6-49.0); Lymphocytes % 5.9 % (15.3-44.8); MPV 8.3 fL (7.6-11.3)
[2020-09-19 04:27] LABS: Albumin 2.8 g/dL (3.4-5.0); Bilirubin Direct 0.3 mg/dL (0-0.2); Bilirubin Total 0.5 mg/dL (0.2-1.0); Potassium 4.3 mmol/L (3.5-5.1); Protein, Total 6.7 g/dL (6.4-8.2)
[2020-09-19] MEDS: ASCORBIC ACID 500 MG TABLET PO SCH ×4 (08:38→21:08)
[2020-09-19] MEDS: VITAMIN D 5,000 UNIT CAP PO SCH (08:38)
[2020-09-19] MEDS: FAMOTIDINE 20 MG/2 ML VIAL IV SCH ×2 (08:38→21:09)
[2020-09-19] MEDS: ZINC SULFATE 220 MG CAP PO SCH (08:38)
[2020-09-19] MEDS: METHYLPREDNISOLONE 125 MG INJ IV SCH ×3 (08:39→21:08)
[2020-09-19] MEDS: APIXABAN 5 MG TABLET PO SCH ×2 (08:42→21:07)
[2020-09-19] MEDS: FLUTICASONE 50MCG NASAL SPRAY NAS SCH ×2 (08:42→21:08)
[2020-09-19] MEDS: Remdesivir 100 MG in NA CHLORIDE 0.9% 250 ML IV SCH (10:09)
--- NOTE | 2020-09-19 17:02 | P.PN ---
Subjective Date of Service: 09/19/20 Primary Care Provider: Dr. Mcfarlane Chief Complaint: Respiratory failure Patient states he is feeling better. His oxygen is requirement has decreased to 60% on the high-flow oxygen. He denies shortness of breath on the high-flow oxygen. Physical Examination - Vital Signs Temperature: 97.8 F Blood Pressure: 134/65 Pulse: 65 Respirations: 24 Pulse Ox (%): 92 - Physical Exam General: Alert, In no apparent distress, Obese Cardiovascular: No edema, Regular rate/rhythm, Normal S1 S2 Gastrointestinal: Soft and benign, Non-distended Musculoskeletal: No swelling Integumentary: No rashes Neurological: Other (No focal motor deficit.) Assessment And Plan - Current Problems (Diagnosis) (1) Acute respiratory failure with hypoxia Current Visit: Yes Status: Acute (2) Hyponatremia Onset Date: ~09/15/20 Current Visit: Yes Status: Acute (3) Pneumonia due to COVID-19 virus Onset Date: ~09/15/20 Current Visit: Yes Status: Acute (4) Hypertension Current Visit: Yes Status: Chronic Qualifiers: Hypertension type: essential hypertension Qualified Code(s): I10 - Essential (primary) hypertension - Plan Continue IV Solu-Medrol. Patient currently on high-flow oxygen but he is requiring less FiO2 Status post convalescent plasma transfusion. On Remdesivir day 2. Continue Vitamin yxlbpmpzcwauodb-[id number]-X and D Contain Zinc supplementation. 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 Sodium level has improved with current measures. Restrict free water to 1200 meal per day. IV normal saline discontinued. Sodium level is up to 135. Monitor blood chemistry to follow hyponatremia.
[2020-09-19] MEDS: MELATONIN 5 MG TABLET PO SCH (21:08)
[2020-09-20 04:26] LABS: Albumin 2.7 g/dL (3.4-5.0); Bilirubin Direct 0.3 mg/dL (0-0.2); Bilirubin Total 0.6 mg/dL (0.2-1.0); C-Reactive Protein 11.2 mg/L (<3.00); Ferritin 1163.9 ng/mL (26-388); Potassium 4.1 mmol/L (3.5-5.1); Protein, Total 6.6 g/dL (6.4-8.2)
[2020-09-20] MEDS: VITAMIN D 5,000 UNIT CAP PO SCH (08:02)
[2020-09-20] MEDS: FAMOTIDINE 20 MG/2 ML VIAL IV SCH ×2 (08:03→21:08)
[2020-09-20] MEDS: ZINC SULFATE 220 MG CAP PO SCH (08:03)
[2020-09-20] MEDS: APIXABAN 5 MG TABLET PO SCH ×2 (08:03→21:07)
[2020-09-20] MEDS: METHYLPREDNISOLONE 125 MG INJ IV SCH ×3 (08:03→21:08)
[2020-09-20] MEDS: ASCORBIC ACID 500 MG TABLET PO SCH ×4 (08:03→21:07)
[2020-09-20] MEDS: FLUTICASONE 50MCG NASAL SPRAY NAS SCH ×2 (08:11→21:00)
[2020-09-20] MEDS: Remdesivir 100 MG in NA CHLORIDE 0.9% 250 ML IV SCH (09:11)
[2020-09-20] MEDS: MELATONIN 5 MG TABLET PO SCH (21:07)
--- NOTE | 2020-09-20 21:39 | P.PN ---
Subjective Date of Service: 09/20/20 Primary Care Provider: Dr. Mcfarlane Chief Complaint: Respiratory failure Subjective: Improving (feeling better, breathing easier, denies chest pain. voiding without issue.) Review of Systems 10-point ROS is otherwise unremarkable Physical Examination - Vital Signs Temperature: 97.0 F Blood Pressure: 151/85 Pulse: 66 Respirations: 21 Pulse Ox (%): 93 Assessment & Plan Physician Review Additional Text: Physical Exam Gen: Alert, In no apparent distress, Obese HEENT: normal conjunctiva, MMM CV: RRR, no edema Pulm: nonlabored on HFNC Abd: soft, NTND Ext: no rash/edema Problem List: Acute hypoxemic respiratory failure secondary to COVID-19 pneumonia Hyponatremia, resolved HTN -s/p conv plasma, on Remdesevir -continue vitamin supplementation, continue IV Solumedrol 80mg TID -wean O2 as tolerated -pulm consulted -ferritin remains >1000 -CRP improving VTE: Eliquis Dispo: anticipate dc home with home O2, likely in 3-4 days Time Spent Managing Pts Care (In Minutes): 35
[2020-09-21 04:40] LABS: Albumin 2.8 g/dL (3.4-5.0); Bilirubin Direct 0.3 mg/dL (0-0.2); Bilirubin Total 0.7 mg/dL (0.2-1.0); C-Reactive Protein 9.12 mg/L (<3.00); Ferritin 1127.5 ng/mL (26-388); Potassium 3.9 mmol/L (3.5-5.1); Protein, Total 6.7 g/dL (6.4-8.2)
[2020-09-21] MEDS ORDERED: GLUCAGON 1 MG/VIAL IM PRN (06:08)
[2020-09-21] MEDS ORDERED: D50W 25 GM/50 ML SYRINGE IV PRN (06:08)
[2020-09-21] MEDS: VITAMIN D 5,000 UNIT CAP PO SCH (07:54)
[2020-09-21] MEDS: INSULIN -REGULAR HUMAN 50 UNIT/0.5 ML ML SQ SCH ×4 (07:54→22:20)
[2020-09-21] MEDS: APIXABAN 5 MG TABLET PO SCH ×2 (07:54→21:43)
[2020-09-21] MEDS: FAMOTIDINE 20 MG/2 ML VIAL IV SCH ×2 (07:54→21:44)
[2020-09-21] MEDS: ZINC SULFATE 220 MG CAP PO SCH (07:54)
[2020-09-21] MEDS: METHYLPREDNISOLONE 125 MG INJ IV SCH ×3 (07:54→21:43)
[2020-09-21] MEDS: ASCORBIC ACID 500 MG TABLET PO SCH ×4 (07:54→21:43)
[2020-09-21] MEDS: FLUTICASONE 50MCG NASAL SPRAY NAS SCH ×2 (07:57→22:31)
--- NOTE | 2020-09-21 08:49 | RAD REPORT ---
EXAM DESCRIPTION: RAD - Chest Single View - 09/21/2020 6:43 am CLINICAL HISTORY: COVID-19, hypoxia Chest pain. COMPARISON: Chest Single View dated 09/14/2020; CHEST SINGLE VIEW dated 03/02/2014; CHEST SINGLE VIEW dated 10/28/2012; CHEST PA AND LAT 2 VIEW dated 07/11/2010 FINDINGS: Portable technique limits examination quality. Moderate bilateral pulmonary opacities are present, greater on the left, appearing moderately worse t graham on the comparative radiograph. The heart is normal in size. Tortuous thoracic aorta. IMPRESSION: Moderate worsening in lung aeration since comparative study.
--- NOTE | 2020-09-21 08:53 | P.PN ---
Subjective Date of Service: 09/21/20 Primary Care Provider: Dr. Mcfarlane Chief Complaint: Respiratory failure Subjective: Improving (Patient is improving oxygen requirements are declining) Review of Systems General: Weakness Respiratory: Shortness of Breath Physical Examination - Vital Signs Temperature: 97.4 F Blood Pressure: 158/73 Pulse: 55 Respirations: 18 Pulse Ox (%): 94 Assessment & Plan - Problems (Diagnosis) (1) Pneumonia due to COVID-19 virus Onset Date: ~09/15/20 Current Visit: Yes Status: Acute Plan: Respiratory failure from brooke virus is down to 60% FiO2 continue weaning ferritin levels declining Physician Review: Patient Assessed, Agree with Above Assessment and Plan
[2020-09-21] MEDS: Remdesivir 100 MG in NA CHLORIDE 0.9% 250 ML IV SCH (09:30)
--- NOTE | 2020-09-21 12:10 | P.PN ---
Subjective Date of Service: 09/21/20 Primary Care Provider: Dr. Mcfarlane Chief Complaint: Respiratory failure Subjective: Improving (Feels like he is breathing more comfortably, still some dyspnea on exertion when ambulating in his room, oxygen requirement is declining) Review of Systems 10-point ROS is otherwise unremarkable Physical Examination - Vital Signs Temperature: 97.4 F Blood Pressure: 158/73 Pulse: 55 Respirations: 18 Pulse Ox (%): 94 Assessment & Plan Physician Review Additional Text: Physical Exam Gen: Alert, In no apparent distress HEENT: normal conjunctiva, moist mucous membranes CV: RRR, no edema Pulm: nonlabored on HFNC, 60% fio2 Abd: soft, NTND Ext: no rash/edema Problem List: Acute hypoxemic respiratory failure secondary to COVID-19 pneumonia Hyponatremia, resolved HTN -s/p conv plasma, on Remdesevir -continue vitamin supplementation, continue IV Solumedrol 80mg TID -wean O2 as tolerated -pulm consulted -ferritin remains >1000, slightly improved -CRP improving VTE: Eliquis Dispo: anticipate dc home with home O2, likely in 3-4 days Time Spent Managing Pts Care (In Minutes): 35
[2020-09-21] MEDS ORDERED: D50W 25 GM/50 ML VIAL IV PRN (14:48)
[2020-09-21] MEDS ORDERED: INSULIN GLARGINE 100 UNITS/ML SQ SCH (21:00)
[2020-09-21] MEDS: MELATONIN 5 MG TABLET PO SCH (21:42)
[2020-09-22 05:00] LABS: Albumin 2.7 g/dL (3.4-5.0); Bilirubin Direct 0.2 mg/dL (0-0.2); Bilirubin Total 0.8 mg/dL (0.2-1.0); Potassium 3.8 mmol/L (3.5-5.1); Protein, Total 6.6 g/dL (6.4-8.2)
[2020-09-22] MEDS ORDERED: D50W 25 GM/50 ML SYRINGE IV PRN ×2 (06:14→17:01)
[2020-09-22] MEDS: INSULIN -REGULAR HUMAN 50 UNIT/0.5 ML ML SQ SCH ×4 (07:30→22:52)
[2020-09-22] MEDS: INSULIN GLARGINE 100 UNITS/ML SQ SCH (08:00)
[2020-09-22] MEDS: APIXABAN 5 MG TABLET PO SCH ×2 (09:00→22:42)
[2020-09-22] MEDS: Remdesivir 100 MG in NA CHLORIDE 0.9% 250 ML IV SCH (09:00)
[2020-09-22] MEDS: ASCORBIC ACID 500 MG TABLET PO SCH ×4 (09:00→22:42)
[2020-09-22] MEDS: METHYLPREDNISOLONE 125 MG INJ IV SCH ×2 (09:00→22:50)
[2020-09-22] MEDS: VITAMIN D 5,000 UNIT CAP PO SCH (09:00)
[2020-09-22] MEDS: ZINC SULFATE 220 MG CAP PO SCH (09:00)
[2020-09-22] MEDS: FLUTICASONE 50MCG NASAL SPRAY NAS SCH ×2 (09:00→21:00)
[2020-09-22] MEDS: FAMOTIDINE 20 MG/2 ML VIAL IV SCH (09:00)
--- NOTE | 2020-09-22 12:43 | P.PN ---
Subjective Date of Service: 09/22/20 Primary Care Provider: Dr. Mcfarlane Chief Complaint: Respiratory failure Subjective: Improving (Improving oxygen levels declining still has significant desat) Review of Systems General: Weakness Respiratory: Shortness of Breath Physical Examination - Vital Signs Temperature: 97.1 F Blood Pressure: 106/56 Pulse: 86 Respirations: 21 Pulse Ox (%): 90 Assessment & Plan - Problems (Diagnosis) (1) Pneumonia due to COVID-19 virus Onset Date: ~09/15/20 Current Visit: Yes Status: Acute Plan: Respiratory failure patient is improving off early can wean him down on the oxygen and use a dose of Solu-Medrol patient is severely hyperglycemia trial on 4 L nasal cannula oxygen possible discharge tomorrow increase Konstantintus Physician Review: Patient Assessed, Agree with Above Assessment and Plan
--- NOTE | 2020-09-22 13:18 | P.PN ---
Subjective Date of Service: 09/22/20 Primary Care Provider: Dr. Mcfarlane Chief Complaint: Respiratory failure Subjective: Improving (Continues to improve, feels his breathing is better, tolerating diet slight dyspnea with ambulation. Oxygen requirement improving) Review of Systems 10-point ROS is otherwise unremarkable Physical Examination - Vital Signs Temperature: 97.1 F Blood Pressure: 106/56 Pulse: 86 Respirations: 21 Pulse Ox (%): 90 Assessment & Plan Physician Review Additional Text: Physical Exam Gen: Alert, In no apparent distress, oriented x3 HEENT: normal conjunctiva, moist mucous membranes CV: RRR, no edema Pulm: nonlabored on HFNC, 60% fio2 Abd: soft, NTND Ext: no rash/edema Problem List: Acute hypoxemic respiratory failure secondary to COVID-19 pneumonia Hyponatremia, resolved HTN -s/p conv plasma, Remdesevir -continue vitamin supplementation, decrease IV Solu-Medrol t.i.d. to b.i.d. -severe hyperglycemia, Lantus was started last night, given more Lantus this morning, will increase evening Lantus as well, on aggressive sliding scale -wean O2 as tolerated, possible nasal cannula today -pulm consulted -overall improving VTE: Eliquis Dispo: anticipate dc home with home O2, likely in ~48hrs Time Spent Managing Pts Care (In Minutes): 35
[2020-09-22] MEDS ORDERED: GLUCAGON 1 MG/VIAL IM PRN (17:01)
[2020-09-22] MEDS ORDERED: INSULIN GLARGINE 100 UNITS/ML SQ SCH (21:00)
[2020-09-22] MEDS: FAMOTIDINE 20 MG TAB PO SCH (22:42)
[2020-09-22] MEDS: MELATONIN 5 MG TABLET PO SCH (22:49)
[2020-09-23 04:43] LABS: Hematocrit 40.1 % (39.6-49.0); MPV 8.9 fL (7.6-11.3); RBC Red Blood Cell Count 4.41 M/uL (4.33-5.43)
[2020-09-23 05:18] LABS: BUN Blood Urea Nitrogen 27 mg/dL (7-18); Bicarbonate 32 mmol/L (21-32); Glucose Level 227 mg/dL (74-106); Sodium Level 136 mmol/L (136-145)
[2020-09-23 05:19] LABS: Magnesium 2.6 mg/dL (1.8-2.4); Potassium 4.2 mmol/L (3.5-5.1)
[2020-09-23] MEDS: ZINC SULFATE 220 MG CAP PO SCH (07:52)
[2020-09-23] MEDS: FAMOTIDINE 20 MG TAB PO SCH ×2 (07:52→20:12)
[2020-09-23] MEDS: ASCORBIC ACID 500 MG TABLET PO SCH ×4 (07:52→20:12)
[2020-09-23] MEDS: FLUTICASONE 50MCG NASAL SPRAY NAS SCH ×2 (07:52→20:12)
[2020-09-23] MEDS: VITAMIN D 5,000 UNIT CAP PO SCH (07:52)
[2020-09-23] MEDS: APIXABAN 5 MG TABLET PO SCH ×2 (07:52→20:12)
[2020-09-23] MEDS: METHYLPREDNISOLONE 125 MG INJ IV SCH ×2 (07:52→20:11)
[2020-09-23] MEDS: INSULIN -REGULAR HUMAN 50 UNIT/0.5 ML ML SQ SCH ×4 (07:53→21:25)
[2020-09-23] MEDS: INSULIN GLARGINE 100 UNITS/ML SQ SCH ×2 (07:53→21:25)
[2020-09-23] MEDS ORDERED: INSULIN -REGULAR HUMAN 50 UNIT/0.5 ML ML SQ ONE (17:02)
[2020-09-23] MEDS: MELATONIN 5 MG TABLET PO SCH (20:12)
--- NOTE | 2020-09-23 20:41 | P.PN ---
Subjective Date of Service: 09/23/20 Primary Care Provider: Dr. Mcfarlane Chief Complaint: Respiratory failure Subjective: Improving (reports feeling better, slowly improving, still with SINGER, eating well, denies chest pain, dysuria) Review of Systems 10-point ROS is otherwise unremarkable Physical Examination - Vital Signs Temperature: 97.5 F Blood Pressure: 138/71 Pulse: 65 Respirations: 19 Pulse Ox (%): 95 Assessment & Plan Physician Review Additional Text: Physical Exam Gen: Alert, In no apparent distress, oriented x3 HEENT: normal conjunctiva, moist mucous membranes CV: RRR, no edema Pulm: nonlabored on HFNC, 60% fio2 Abd: soft, NTND Ext: no rash/edema Problem List: Acute hypoxemic respiratory failure secondary to COVID-19 pneumonia Hyponatremia, resolved HTN -s/p conv plasma, Remdesevir -continue vitamin supplementation, continue solumedrol 80 BID -severe hyperglycemia, continue to titrate lantus, need better control -wean O2 as tolerated -pulm consulted -overall improving VTE: Eliquis Dispo: anticipate dc home with home O2, likely in ~48hrs Time Spent Managing Pts Care (In Minutes): 35
[2020-09-24 04:22] LABS: Absolute Lymphocytes (CBC) 0.4 K/uL (0.7-4.9); Basophils % 0.1 % (0-1.3); Hematocrit 40.4 % (39.6-49.0); Lymphocytes % 4.7 % (15.3-44.8); MPV 8.4 fL (7.6-11.3); RBC Red Blood Cell Count 4.39 M/uL (4.33-5.43)
[2020-09-24 04:40] LABS: BUN Blood Urea Nitrogen 28 mg/dL (7-18); Bicarbonate 33 mmol/L (21-32); Ferritin 954.8 ng/mL (26-388); Glucose Level 277 mg/dL (74-106); Magnesium 2.6 mg/dL (1.8-2.4); Potassium 4.2 mmol/L (3.5-5.1); Sodium Level 136 mmol/L (136-145)
[2020-09-24 04:58] LABS: C-Reactive Protein < 2.90 mg/L (<3.00)
[2020-09-24] MEDS: METHYLPREDNISOLONE 125 MG INJ IV SCH ×3 (07:51→20:44)
[2020-09-24] MEDS: ZINC SULFATE 220 MG CAP PO SCH (07:51)
[2020-09-24] MEDS: VITAMIN D 5,000 UNIT CAP PO SCH (07:51)
[2020-09-24] MEDS: APIXABAN 5 MG TABLET PO SCH ×2 (07:51→20:18)
[2020-09-24] MEDS: ASCORBIC ACID 500 MG TABLET PO SCH ×4 (07:51→20:20)
[2020-09-24] MEDS: FAMOTIDINE 20 MG TAB PO SCH ×2 (07:51→20:20)
[2020-09-24] MEDS: FLUTICASONE 50MCG NASAL SPRAY NAS SCH ×2 (07:52→21:00)
[2020-09-24] MEDS: INSULIN -REGULAR HUMAN 50 UNIT/0.5 ML ML SQ SCH ×4 (07:53→20:19)
[2020-09-24] MEDS: INSULIN GLARGINE 100 UNITS/ML SQ SCH ×2 (07:54→20:18)
--- NOTE | 2020-09-24 11:00 | P.PN ---
Subjective Date of Service: 09/24/20 Primary Care Provider: Dr. Mcfarlane Chief Complaint: Respiratory failure Subjective: Improving (Patient is doing much better oxygen requirements are declining) Review of Systems General: Weakness Respiratory: Shortness of Breath Physical Examination - Vital Signs Temperature: 97.5 F Blood Pressure: 151/70 Pulse: 55 Respirations: 19 Pulse Ox (%): 93 Assessment & Plan - Problems (Diagnosis) (1) Pneumonia due to COVID-19 virus Onset Date: ~09/15/20 Current Visit: Yes Status: Acute Plan: Respiratory failure much better continue to titrate oxygen to 4-6 L possible discharge is feeling better slightly weak able to ambulate to the bathroom white count is down to normal discharge on prednisone 20 b.i.d. for a week then 10 b.i.d. continue with full anticoagulation follow-up with me the telephone visit in a week Physician Review: Patient Assessed, Agree with Above Assessment and Plan
--- NOTE | 2020-09-24 12:51 | P.PN ---
Subjective Date of Service: 09/24/20 Primary Care Provider: Dr. Mcfarlane Chief Complaint: Respiratory failure Subjective: Improving (slowly improving, o2 requirement decreasing, feeling better. still with some dyspnea with ambulation but better) Review of Systems 10-point ROS is otherwise unremarkable Physical Examination - Vital Signs Temperature: 97.5 F Blood Pressure: 151/70 Pulse: 55 Respirations: 19 Pulse Ox (%): 93 Assessment & Plan Physician Review Additional Text: Physical Exam Gen: Alert, NAD, oriented x3 HEENT: normal conjunctiva, moist mucous membranes CV: RRR, no edema Pulm: nonlabored on HFNC, 55% fio2 Abd: soft, NTND Ext: no rash/edema Problem List: Acute hypoxemic respiratory failure secondary to COVID-19 pneumonia Hyponatremia, resolved Hyperglycemia HTN -s/p conv plasma, Remdesevir -continue vitamin supplementation, continue solumedrol 80 BID -pulm following -severe hyperglycemia, continue to titrate lantus, needs better control, i ncreased again last night to 30u qHS, 10u in AM -wean O2 as tolerated -overall improving VTE: Eliquis Dispo: anticipate dc home with home O2, likely in ~24-48hrs Time Spent Managing Pts Care (In Minutes): 35
[2020-09-24] MEDS: MELATONIN 5 MG TABLET PO SCH (20:19)
[2020-09-25 05:53] LABS: BUN Blood Urea Nitrogen 30 mg/dL (7-18); Bicarbonate 31 mmol/L (21-32); Glucose Level 232 mg/dL (74-106); Potassium 4.1 mmol/L (3.5-5.1); Sodium Level 136 mmol/L (136-145)
[2020-09-25] MEDS ORDERED: INSULIN GLARGINE 100 UNITS/ML SQ SCH (08:00)
[2020-09-25] MEDS: FAMOTIDINE 20 MG TAB PO SCH (08:04)
[2020-09-25] MEDS: ASCORBIC ACID 500 MG TABLET PO SCH ×3 (08:04→15:51)
[2020-09-25] MEDS: ZINC SULFATE 220 MG CAP PO SCH (08:04)
[2020-09-25] MEDS: VITAMIN D 5,000 UNIT CAP PO SCH (08:04)
[2020-09-25] MEDS: INSULIN -REGULAR HUMAN 50 UNIT/0.5 ML ML SQ SCH ×3 (08:05→15:51)
[2020-09-25] MEDS: APIXABAN 5 MG TABLET PO SCH (08:05)
[2020-09-25] MEDS: METHYLPREDNISOLONE 125 MG INJ IV SCH (08:05)
[2020-09-25] MEDS: FLUTICASONE 50MCG NASAL SPRAY NAS SCH (08:06)
[2020-09-25 15:56] VITALS: BP 113/74; TEMP 96.6
[2020-09-25 15:57] VITALS: O2SAT 94
--- NOTE | 2020-09-25 20:53 | P.DS ---
Admission Date: 09/15/20 Discharge Date: 09/25/20 Primary Care Provider: Dr. Mcfarlane Disposition: ROUTINE DISCHARGE Discharge Condition: GOOD Reason for Admission: Respiratory failure due to COVID-19 pneumonia Consultations: Pulmonology - Dr. Mcdowell Procedures: CTA (09/14): 1. The main pulmonary arteries and proximal segmental branches opacify normally and are without filling defect. The remainder of the pulmonary vessels are inadequately evaluated secondary to motion artifact. 2. Commonly reported imaging features of (COVID-19 or viral) pneumonia are present. Other processes such as influenza pneumonia and organizing pneumonia, as can be seen with drug toxicity and connective tissue disease, can cause a similar imaging pattern. Problem List: Acute hypoxemic respiratory failure secondary to COVID-19 pneumonia Hyponatremia, resolved Hyperglycemia, DM2 HTN Brief History of Present Illness: 70yo M, PMH: HTN, arthritis, h/o prostate cancer presented to ED due to progressively worsening SOB, cough, diarrhea. Symptoms began 09/06, COVID+ on 09/12. Finished 5 day course of azithromycin and was on prednisone x 2 days. He was noted to have SpO2: 94% on 5L NC. CTA consistent with COVID-19 pneumonia. Hospital Course: Patient was treated with high dose steroids, ivermectin, convalescent plasma, and remdesevir. He was anticoagulated with eliquis. He improved and was stable on 3L nasal cannula for >24hrs prior to discharge. He is discharged with prednisone x2 weeks, Eliquis, and insulin. He is to follow up with Dr. Mcdowell in 1 week. Advised to follow up with PCP as well. His HgbA1c: 7.8 (09/23/20). His glucose was difficult to control due to steroid induced hyperglycemia in addition to likely undiagnosed diabetes mellitus. He was requiring high dose insulin. He is discharged with insulin NPH 20 units BID for at least the next 2 weeks while taking prednisone. Vital Signs/Physical Exam: Physical Exam Gen: Alert, NAD, oriented x3 HEENT: normal conjunctiva, moist mucous membranes CV: RRR, no edema Pulm: nonlabored on 3L NC, diminished at bases Abd: soft, NTND Ext: no rash/edema Temp Pulse Resp BP Pulse Ox 96.6 F L 71 18 113/74 94 09/25/20 15:55 09/25/20 15:55 09/25/20 15:55 09/25/20 15:55 09/25/20 15:55 Laboratory Data at Discharge: WBC 9.60 K/uL (4.3-10.9) D 09/24/20 03:34 Hgb 14.0 g/dL (13.6-17.9) 09/24/20 03:34 Hct 40.4 % (39.6-49.0) 09/24/20 03:34 Plt Count 191 K/uL (152-406) 09/24/20 03:34 Sodium 136 mmol/L (136-145) 09/25/20 03:30 Potassium 4.1 mmol/L (3.5-5.1) 09/25/20 03:30 BUN 30 mg/dL (7-18) H 09/25/20 03:30 Creatinine 0.81 mg/dL (0.55-1.3) 09/25/20 03:30 Glucose 232 mg/dL (74-106) H 09/25/20 03:30 Magnesium 2.6 mg/dL (1.8-2.4) H 09/24/20 03:34 Total Bilirubin 0.8 mg/dL (0.2-1.0) 09/22/20 03:20 AST 37 U/L (15-37) 09/22/20 03:20 ALT 86 U/L (12-78) H 09/22/20 03:20 Alkaline Phosphatase 108 U/L (45-117) 09/22/20 03:20 Triglycerides 135 mg/dL (<150) 09/16/20 05:40 Cholesterol 119 mg/dL (<200) 09/16/20 05:40 HDL Cholesterol 32 mg/dL (40-60) L 09/16/20 05:40 Cholesterol/HDL Ratio 3.72 09/16/20 05:40 Home Medications: Triamterene/Hydrochlorothiazid [Triamterene-Hctz 37.5-25 mg Cp] 1 tab PO DAILY WITH BREAKFAST 02/25/14 Albuterol Sulfate [Albuterol Sulfate Hfa] 2 puff IH Q6HP PRN 09/15/20 Benzonatate [Tessalon Perle*] 200 mg PO TIDP PRN 09/15/20 Meloxicam [Mobic*] 15 mg PO DAILY 09/15/20 Valsartan 1 tab PO DAILY 09/15/20 Apixaban [Eliquis] 5 mg PO BID 30 Days #60 tablet 09/25/20 Blood Sugar Diagnostic [Blood Glucose Test Strip] 1 each ACHS #120 strip 09/25/20 Blood-Glucose Meter [Blood Glucose Meter] 1 each [facility] #1 each 09/25/20 Insulin NPH Human Isophane [Humulin N] 20 unit SQ BID 30 Days #1 vial 09/25/20 Lancets 1 each [facility] 30 Days #120 each 09/25/20 Syrge-Ndl,Ins 0.3 ml Half Simeon [Insulin Syringe] 1 each [facility] 30 Days #120 disp.syrin 09/25/20 predniSONE [Prednisone] 20 mg PO SEECOM 14 Days #21 tablet 09/25/20 New Medications: Blood-Glucose Meter [Blood Glucose Meter] 1 each [facility] #1 each Blood Sugar Diagnostic [Blood Glucose Test Strip] 1 each [facility] #120 strip Apixaban [Eliquis] 5 mg PO BID 30 Days #60 tablet Insulin NPH Human Isophane [Humulin N] 20 unit SQ BID 30 Days #1 vial Syrge-Ndl,Ins 0.3 ml Half Simeon [Insulin Syringe] 1 each [facility] 30 Days #120 disp.syrin Lancets 1 each [facility] 30 Days #120 each predniSONE [Prednisone] 20 mg PO SEECOM 14 Days #21 tablet Diet: ADA Activity: Ad ken Followup: Ramses Mcdowell MD [ACTIVE - CAN ADMIT] - 1 Week Darío Mcfarlane MD [Primary Care Provider] - 1-2 Weeks
== END 2020-09-25 17:30 | disposition home or self-care (01) | DRG 177 ==
LOC: ER 16:32 → ERHOLD 09-15 00:59 → 4TH 09-15 01:25
PROVIDERS: ADMIT Internal Medicine; ATTEND Hospitalist
PROC: XW033E5 Introduction of Remdesivir Anti-infective into Peripheral Vein, Percutaneous Approach, New Technology Group 5 (ICD-10-PCS; principal; 2020-09-17)
PROC: XW13325 Transfusion of Convalescent Plasma (Nonautologous) into Peripheral Vein, Percutaneous Approach, New Technology Group 5 (ICD-10-PCS; 2020-09-17)
DX: U07.1 COVID-19 (principal); J12.82 Pneumonia due to coronavirus disease 2019; J96.01 Acute respiratory failure with hypoxia; E87.1 Hypo-osmolality and hyponatremia; E87.0 Hyperosmolality and hypernatremia; Z68.41 Body mass index [BMI] 40.0-44.9, adult; E66.9 Obesity, unspecified; I10 Essential (primary) hypertension; T38.0X5A Adverse effect of glucocorticoids and synthetic analogues, initial encounter; R73.9 Hyperglycemia, unspecified; R94.5 Abnormal results of liver function studies; Z91.048 Other nonmedicinal substance allergy status; Z85.46 Personal history of malignant neoplasm of prostate; Z96.651 Presence of right artificial knee joint; Z96.1 Presence of intraocular lens; Z79.52 Long term (current) use of systemic steroids; Z79.899 Other long term (current) drug therapy; Z79.01 Long term (current) use of anticoagulants; Z79.4 Long term (current) use of insulin
CPT/HCPCS: 36415; 36430; 71045; 71275; 80048; 80053; 80061; 80076; 82728; 82947; 83036; 83605; 83735; 83930; 83935; 84145; 84300; 85025; 85027; 85379; 86140; 86900; 86901; 86927; 94002; 94003; 96361; 96374; 99285; J1100; J1815; J2920; J2930; J7030; J7050; Q9967

== ENCOUNTER 2021-09-16 10:39 | Inpatient (IN) | payer OTHER ==
--- OUTSIDE RECORDS SUMMARY | 2021-09-16 10:42 | XMS REPORT | Continuity of Care Document ---
:1950 Author Organization [facility] t Address [address] [place] [address] Care Team Providers Name Role Phone Pcp, Does Not Have A Primary Care Physician Mark, N Attending Clinician Unavailable Jf SETHI, T Attending Clinician Unavailable Doctor Unassigned, Name Attending Clinician Unavailable Mark, N Admitting Clinician Unavailable Payers Payer Name Policy Type Policy Number Effective Date Expiration Date S ource Problems This patient has no known problems. Allergies, Adverse Reactions, Alerts Allergy Allergy Status Severity Reaction(s) Onset Inactive Treating Comm ents Source Name Type Date Date Clinician No Known DA Active U 2020-08 [facility] 08-23 Clear Allergie 00:00: Lundberg s 00 [facility] adhesive DA Active [place] SURGICAL 2020-08 [facility] TAPE-REDNESS 08-19 Ana r ITCHING 00:00: Lundberg 00 [facility] adhesive DA Active AL 2020-08 [facility] - Clear 00:00: [place] 00 [facility] adhesive DA Active [place] SUR[place] [facility] [place] [facility] DA Active [place] [facility] [place] [facility] [facility] Social History Social Habit Start Date Stop Date Quantity Comments Source Exposure to Not sure [facility] SARS-CoV-2 (event) Medica l Branch Sex Assigned At [birth year] [facility] 00:00:00 00:00:00 Medical Branch Smoking Status Start Date Stop Date Source Unknown if ever smoked [facility] Medications This patient has no known medications. Procedures Procedure Date / Time Performed Performing Clinician Ale walker [id number] 2021-08-31 00:00:00 [facility] [id number] 2021-08-31 00:00:00 [facility] Encounters Start End Encounter Admission Attending Care Care Encounter Source Date/Time Date/Time Type Type Clinicians Facility Department ID 2021-08-08 Inpatient JALEN Flores, [facility] ADMI [id number] [facility] 15:00:00 Lionel [id number] [facility] 2021-08-03 Inpatient JALEN Poseyia, [facility] ADMI [id number] [facility] 07:30:00 Lionel [id number] [facility] 2021-06-23 Inpatient JALEN Poseyia, [facility] ADMI [id number] [facility] 15:00:00 Lionel [id number] [facility] 2021-08-31 2021-09-01 Inpatient JALEN Flores, [facility] ADMI [id number] [facility] 09:00:00 12:17:00 Lionel [id number] [facility] 2021-08-31 2021-09-01 Inpatient JALEN Flores, [facility] ADMI [id number] [facility] 09:00:00 12:17:00 Lionel 77 [facility] 2021-08-31 2021-08-31 Outpatient Mark, HCACL LABO [id number] [facility] 15:47:00 15:47:00 Lionel [id number] [facility] 2021-08-27 2021-08-27 Letter BUCKY Rhoades [id number] 00:00:00 00:00:00 (Out) Bebe MENJIVAR [id number] [facility] [id number] Romaine as [phone] [address] 2021-08-24 2021-08-24 Letter Doctor LAWLER [id number] 00:00:00 00:00:00 (Out) Unassigned, OTTO [id number] [facility] [place] [facility] [id number] Romaine as [phone] [place] [address] Branch 2021-06-19 2021-06-19 Outpatient Mark, HCAC[facility] LABO [id number] [facility] 16:53:00 16:53:00 Lionel 43 [facility] 2021-06-19 2021-06-19 Outpatient Mark, [facility]AC[facility] LABO [id number] [facility] 16:52:00 16:52:00 Lionel 16 [facility] 2021-06-19 2021-06-19 Outpatient Mark, [facility] LABO [id number] [facility] 16:52:00 16:52:00 Lionel [id number] [facility] 2021-06-19 2021-06-19 Outpatient EL Mark, [facility] RADI [id number] [facility] 10:51:00 10:51:00 Lionel [id number] [place] [facility] 2021-06-19 2021-06-19 Outpatient EL Mark, [facility] RADI [id number] [facility] 10:51:00 10:51:00 Lionel 85 [place] [facility] Results Test Description Test Time Test Comments Results Result [facility] e Comments - XR KNEE 1 OR 2 V 2021-09-01 LT 13:26:00 [facility]: DESIRAE OVERTON : 1950 Sex: M Patient Name: DESIRAE OVERTON Unit No: [id number] EXAMS: CPT CODE: [id number] XR KNEE 1 [place] 2 [place] [address] IMAGES PROVIDED: 2 FINDINGS: Postoperative changes from left constrained total knee arthoplasty demonstrated without evidence of immediate complication. No acute fracture is visualized. IMPRESSION: Postoperative exam as above. at 1326 Reported and signed by: Michael Overton M.D. CC: Lionel Flores Technologist: SHIRA JIMÉNEZ. RT(R) Transcribed D/ (2227) Ranjana [facility] NAME: DESIRAE OVERTON [address] [facility] PHYS: Lionel Light MD : 1950 AGE: 71 SEX: M [place] [address] LOC: Y.304 A PHONE #: [phone] EXAM DATE: 08/31/2021 STATUS: DIS IN FAX #: [phone] RAD #: D/C DT 09/01/2021 PAGE 1 Signed Report Patient Name: DESIRAE OVERTON Unit No: [id number] EXAMS: CPT CODE: [id number] XR KNEE 1 OR 2 [place] LT [address]90 <Continued> Orig Print D/T: S: 09/01/2021 (8163) [facility] NAME: DESIRAE OVERTON [address] [facility] PHYS: Lionel Light MD : 1950 AGE: 71 SEX: M [place] [address] LOC: Y.304 A PHONE #: [phone] EXAM DATE: 08/31/2021 STATUS: DIS IN FAX #: [phone] RAD #: D/C DT 09/01/2021 PAGE 2 Signed Report BASIC METABOLIC PANEL 2021-09-01 06:40:00 Test Item Value Reference Range Interpretation Comme nts SODIUM (test code = NA) 135 mmol/L 136-145 L POTASSIUM (test code = K) 4.6 mmol/L 3.5-5.1 N CHLORIDE (test code = CL) 100.0 mmol/L 98-107 N CARBON DIOXIDE (test code = 20.6 mmol/L 21-32 L CO2) GLUCOSE (test code = GLU) 125 mg/dL 70-110 H BLOOD UREA NITROGEN (test code 21 mg/dL 7-18 H = BUN) GLOMERULAR FILTRATION RATE 71.2 >60 U nit of measure: (test code = GFR) mL/min/1.7 3 [id number] Range:Healthy A dults >90 mL/min/1.73 m2 For Chronic Kidney Disease: Stage II Mi ld Decrease in GFR 60-9 0 Stage III Moderate Decrease in GFR 30-59 Stage IV Severe Decrease in GFR 15-29 Stage V Kidney Failure <15 CREATININE (test code = CREAT) 1.03 mg/dL 0.55-1.30 N CALCIUM (test code = CA) 8.5 mg/dL 8.2-10.1 N HGB [id number] 06:07:00 Test Item Value Reference Range Interpretation Comments HEMOGLOBIN (test code = HGB) 13.5 g/dL 12-16 N HEMATOCRIT (test code = HCT) 38.1 % 37-47 N SPECIMEN COMMENT: POD #[id number] 09:52:00 Test Item Value Reference Range Interpretation Comments [id number] Negative Negative The test was performed (test code = at: [facility]: [id number]) this entry is for TRACKING purpos es only and the testwas done outside [facility], the perfroming [facility] in spec imen comments. The test was performed at: [facility]: 08/25/21Patient's account number from transferring facility: [id number] patient's current lab results are: NegativeCBC W/AUTO [id number] 17:04:00 Test Item Value Reference Range Interpretation Comments WHITE BLOOD CELL (test code = WBC) 6.9 K/mm3 5.7-10.5 N RED BLOOD CELL (test code = RBC) 4.72 M/mm3 4.2-5.4 N HEMOGLOBIN (test code = HGB) 14.8 g/dL 12-16 N HEMATOCRIT (test code = HCT) 41.7 % 37-47 N MEAN CELL VOLUME (test code = MCV) 88 fL 80-98 N MEAN CELL HGB (test code = MCH) 31.4 pg 27-34 N MEAN CELL HGB CONCENTRATION (test 35.5 g/dL 30.8-34.1 H code = MCHC) RED CELL DISTRIBUTION WIDTH (test 12.8 % 11-16 N code = RDW) PLT (test code = PLT) 237 K/mm3 130-400 N MEAN PLATELET VOLUME (test code = 10.8 fL 8.9-12.1 N MPV) NEUTROPHIL % (test code = NT%) 58.2 % 45-70 N LYMPHOCYTE % (test code = LY%) 29.4 % 20-40 N MONOCYTE % (test code = MO%) 8.6 % 3-10 N EOSINOPHIL % (test code = EO%) 2.5 % 1-5 N BASOPHIL % (test code = BA%) 1.0 % 0.0-1.1 N NEUTROPHIL # (test code = NT#) 4.00 K/mm3 2.00-7.50 N LYMPHOCYTE # (test code = LY#) 2.02 K/mm3 1.50-4.00 N MONOCYTE # (test code = MO#) 0.59 K/mm3 0.2-0.8 N EOSINOPHIL # (test code = EO#) 0.17 K/mm3 0.04-0.4 N BASOPHIL # (test code = BA#) 0.07 K/mm3 0.02-0.10 N MANUAL DIFF REQUIRED (test code = NO MANUAL DIFF MDIFF) NUCLEATED RED BLOOD CELL (test 0 % 0-0 N code = NRBC) SED [id number] 17:04:00 Test Item Value Reference Range Interpretation Comments SED RATE (test code = SEDW) 10 mm/hr 0-15 N C REACTIVE [id number] 15:19:00 Test Item Value Reference Range Interpretation Comments C REACTIVE PROTEIN (test code = < 0.2 mg/dL <0.9 CRP) COMPREHENSIVE METABOLIC [id number] 15:19:00 Test Item Value Reference Range Interpretation Comments SODIUM (test code = 139 mmol/L 136-145 N NA) POTASSIUM (test code = 4.3 mmol/L 3.5-5.1 N K) CHLORIDE (test code = 100.0 mmol/L 98-107 N CL) CARBON DIOXIDE (test 27.6 mmol/L 21-32 N code = CO2) GLUCOSE (test code = 89 mg/dL 70-110 N GLU) BLOOD UREA NITROGEN 22 mg/dL 7-18 H (test code = BUN) GLOMERULAR FILTRATION 78.2 >60 Unit o f measure: RATE (test code = GFR) mL/mi n/1.73 [id number] Range:Healthy Adults >90 mL/min/1.73 m2 For Chronic Kidney Disease: St age II Mild Decrease in GFR 60-90 St age III Moderate Decrease in GFR 30-59 Stage IV Severe Decre ase in GFR 15- 29 Stage V Kidney Failure <15 CREATININE (test code 0.95 mg/dL 0.55-1.30 N = CREAT) TOTAL PROTEIN (test 7.4 g/dL 6.4-8.2 N code = PROT) ALBUMIN (test code = 4.1 g/dL 3.4-5.0 N ALB) GLOBULIN (test code = 3.3 g/dL 2.2-4.2 N GLOB) ALBUMIN/GLOBULIN RATIO 1.2 0.7-2.0 N (test code = A/G) CALCIUM (test code = 9.2 mg/dL 8.2-10.1 N CA) BILIRUBIN TOTAL (test 0.50 mg/dL 0.2-1.00 N code = BILT) SGOT/AST (test code = 50.0 U/L 15-37 H AST) SGPT/ALT (test code = 77.0 U/L 12-78 N Please note new ALT) normal range. ALKALINE PHOSPHATASE 94 U/L 46-116 N TOTAL (test code = ALKP) THROMBOPLASTIN TIME [id number] 15:11:00 Test Item Value Reference Range Interpretation Comments PTT ACTIVATED (test code = APTT) 36.3 secs 24.9-37.0 N IS PATIENT ON ANTICOAGULANTS ? YLIST ANTICOAGULANT/ANTI PLT MEDICATION : AspirinHas Lab been notified if Patient is on Heparin Drip? NOPROTHROMBIN TIME 2021-06-19 15:11:00 Test Item Value Reference Range Interpretation Comments PROTHROMBIN TIME 11.9 secs 10.1-12.5 N PATIENT (test code = PTP) INTERNATIONAL NORMAL 1.04 <2.0 RECOMME NDED THERAPEUTIC RATIO (test code = RANGE FOR ORAL INR) ANTICOAGULANTTR EATMENT: CONDI TION INRProphylaxis of venous thrombos is in 2.0 - 3.0 high-risk medic al or surgical patientsTreatme nt of venous thrombos is 2.0 - 3.0Prevention o f embolism 2.0 - 3.0Prevention o f recurrent embol ism, or 3.0 - 4. 5 patients with mechanical pros thetic intravascular v jenkins IS PATIENT ON ANTICOAGULANTS ? YLIST ANTICOAGULANT/ANTI PLT MEDICATION : AspirinHas Lab been notified if Patient is on Heparin Drip? NOSYNOVIAL FLD CELL [id number] 13:19:00 Test Item Value Reference Range Interpretation Comments SYNOVIAL FLD XANTHOCHROMIC LT. YELLOW A COLOR (test code = COLSY) SYNOVIAL FLD HAZY CLEAR APPEARANCE (test code = APPSY) SYNOVIAL FLD 2 mL VOLUME (test code = VOLSY) SYNOVIAL FLD WBC 1173.000 /MM3 0-200 H (test code = WBCSY) SYNOVIAL FLD RBC 9000.000 /mm3 0-2 H NOTE: An automated (test code = method is now b eing RBCSY) used to determinesynovi al fluid WBC and RBC cou nts. The differential wi llstill be performed ma nually. SYNOVIAL FLD POLY 13 % 0-25 N (test code = POLYSY) SYNOVIAL FLD 87 % 0-78 H LYMPHOCYTE (test code = LYMPHSY) SPECIMEN COMMENT: ASP.LT.KNEE- XR FLUORO [id number] 12:03:00 [facility] 1950 Sex: M Patient Name: DESIRAE OVERTON Unit No: [id number] EXAMS: CPT CODE: [id number] XR FLUORO NDL 97700 FLUOROSCOPICALLY GUIDED ASPIRATION OF THE LEFT KNEE COMMENT: After informed consent was obtained a needle was placed in the knee joint with fluoroscopic guidance. Its position was confirmed with an AP radiograph. 0.1 minutes of fluoroscopy time was utilized. 8 mL of clear yellow fluid was aspirated and sent for analysis.No immediate complications were encountered. at 1203 Reported and signed by: Boubacar Payne MD CC: Lionel Flores Technologist: Pippa Melendrez RT.(R) Tra nscribed D/ (1203) t.KARSTENR.JCL [facility] NAME: DESIRAE OVERTON [address] [facility] PHYS: Lionel Light MD : 1950 AGE: 71 SEX: M [place] [address] LOC: Y.RAD PHONE #: [phone] EXAM DATE: 06/19/2021 STATUS: REG CLI FAX #: [phone] RAD #: D/C DT PAGE 1 Signed Report Patient Name: DESIRAE OVERTON Unit No: [id number] EXAMS: CPT CODE: [id number] XR FLUORO NDL 19826 <Continued> Orig Print D/T: S: 06/19/2021 (1207) [facility] NAME: DESIRAE OVERTON [address] [facility] PHYS: Lionel Light MD : 1950 AGE: 71 SEX: M [place] [address] LOC: Y.RAD PHONE #: [phone] EXAM DATE: 06/19/2021 STATUS: REGCLI FAX #: [phone] RAD #: D/C DT PAGE 2 Signed Report
--- NOTE | 2021-09-16 11:14 | RAD REPORT ---
EXAM DESCRIPTION: CT - Ct Stroke Brain Wo Cont - 09/16/2021 11:07 am CLINICAL HISTORY: Slurred speech COMPARISON: 2012 TECHNIQUE: Computed axial tomography of the head was obtained. All CT scans are performed using dose optimization technique as appropriate and may include automated exposure control or mA/KV adjustment according to patient size. 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 Gliosis and calcification w ithin the right frontal lobe. No acute intracranial bleed. The ventricles are normal in caliber. No extra-axial fluid collection is noted. Fluid within the sinuses/ mastoids is not seen. IMPRESSION: No acute intracranial abnormality is seen. If patient's symptoms persist MRI of the bra in would be recommended. Dr Lau Emergency Room was notified 11:07 a.m. September 16, 2021
[2021-09-16 11:24] LABS: Absolute Lymphocytes (CBC) 0.8 K/uL (0.7-4.9); Hematocrit 36.5 % (39.6-49.0); MPV 7.9 fL (7.6-11.3); Protime INR 1.09
[2021-09-16] MEDS ORDERED: LEVETIRACETAM 500 MG/5 ML VIAL IV ONE (11:26)
[2021-09-16] MEDS ORDERED: CLOPIDOGREL 75 MG TABLET ONE (11:26)
[2021-09-16] MEDS ORDERED: ASPIRIN 81 MG CHEWABLE TABLET ONE (11:26)
[2021-09-16] MEDS ORDERED: NA CHLORIDE 0.9% 0 ML ONE (11:26)
[2021-09-16] MEDS ORDERED: NA CHLORIDE 0.9% 1,000 ML ONE (11:27)
[2021-09-16] MEDS ORDERED: FOLIC ACID 5 MG/ML VIAL ONE (11:27)
--- NOTE | 2021-09-16 11:39 | RAD REPORT ---
EXAM DESCRIPTION: Marti Single View09/16/2021 11:14 am CLINICAL HISTORY: cough COMPARISON: 2020 FINDINGS: Mild bilateral pulmonary opacities. The heart is normal size IMPRESSION: Mild bilateral pulmonary opacities have mostly resolved since the prior exam
[2021-09-16 11:42] LABS: Albumin 3.5 g/dL (3.4-5.0); Bilirubin Direct 0.2 mg/dL (0-0.2); Bilirubin Total 0.8 mg/dL (0.2-1.0); Magnesium 2.2 mg/dL (1.8-2.4); Potassium 3.6 mmol/L (3.5-5.1); Protein, Total 7.6 g/dL (6.4-8.2); Troponin High Sensitivity 16.6 pg/mL (<58.9)
--- NOTE | 2021-09-16 12:04 | RAD REPORT ---
EXAM DESCRIPTION: Cj Angio09/16/2021 11:51 am CLINICAL HISTORY: numbness COMPARISON: None TECHNIQUE: 50 cc Isovue 370 was administered intravenously. 3D MIP reconstruction performed All CT scans are performed using dose optimization technique as appropriate and may include automated exposure control or mA/KV adjustment according to patient size. FINDINGS: Mild plaque within the common carotid, internal carotid and external carotid arteries bila terally. Vertebral arteries are normal caliber. No dissection seen. Brachiocephalic artery normal. IMPRESSION: No significant abnormality displayed NASCET criteria used. Mild 0-49% stenosis Moderate 50-69% stenosis Severe 70-99% stenosis
--- NOTE | 2021-09-16 12:07 | RAD REPORT ---
EXAM DESCRIPTION: CTHead angio09/16/2021 11:51 am CLINICAL HISTORY: Numbness COMPARISON: None TECHNIQUE: CT angiogram of the head was obtained. 3D MIPS reconstruction performed. All CT scans are performed using dose optimization technique as appropriate and may include automated exposure control or mA/KV adjustment according to patient size. FINDINGS: Mild calcified plaque within the distal internal carotid arteries. The basilar, anterior cerebral, middle cerebral and posterior cerebral arteries are normal caliber. A n aneurysm is not seen. A significant stenosis is not noted. No evidence of recurrent/residual AVM right frontal lobe IMPRESSION: No acute abnormality is displayed
--- NOTE | 2021-09-16 12:19 | ER ---
Nurse's Notes [facility] Name: Damaso Campos Age: 71 yrs Sex: Male : 1950 Arrival Date: 09/16/2021 Time: 10:41 Bed 6 Private MD: Diagnosis: Altered mental status, unspecified;Other seizures-ABSENCE;Essential (primary) hypertension;Obesity, unspecified Presentation: 09/16 10:42 Chief complaint: Spouse and/or significant other states: pt had a blank stare on his vg1 face and some confusion. S/S began around 9 am. Spouse said was asking pt a question and 'it took a while for him to answer me'. Coronavirus screen: Vaccine status: Patient reports receiving the 2nd dose of the covid vaccine. Client denies travel out of the [place] in the last 14 days. Ebola Screen: Patient negative for fever greater than or equal to 101.5 degrees Fahrenheit, and additional compatible Ebola Virus Disease symptoms. No acute neurological deficit is noted. Initial Sepsis Screen: Does the patient meet any 2 criteria? No. Patient's initial sepsis screen is negative. Does the patient have a suspected source of infection? No. Patient's initial sepsis screen is negative. Risk Assessment: Do you want to hurt yourself or someone else? Patient reports no desire to harm self or others. Onset of symptoms was September 16, 2021 at 09:00. 10:42 Method Of Arrival: Wheelchair vg1 10:42 Acuity: MYKEL 2 vg1 12:32 Pre-hospital glucose is not applicable to this patient. Triage Assessment: 10:45 The onset of the patients symptoms was September 16, 2021 at 09:00. General: Appears vg1 comfortable, Behavior is calm, cooperative. Pain: Denies pain. Neuro: Level of Consciousness is awake, alert, obeys commands, Oriented to person, place, time, situation, Ship Joiner are equal bilaterally Moves all extremities. Gait is unsteady, Speech is normal, Facial symmetry appears normal. Stroke Activation: Symtpom onset >3 hours and < 6 hours Physician: Stroke Attending; Name: ; Notified At: ; Arrived At: Physician: Chief Stroke Resident; Name: ; Notified At: ; Arrived At: Physician: Stroke Resident; Name: ; Notified At: ; Arrived At: Physician: ED Attending; Name: Sid; Notified At: 10:42; Arrived At: Physician: ED Resident; Name: ; Notified At: ; Arrived At: Historical: - Allergies: 10:45 Adhesives; vg1 10:45 latex tape; vg1 - Home Meds: 10:45 triamterene-hydrochlorothiazid 37.5-25 mg Oral cap 1 cap once daily [Active]; meloxicam vg1 15 mg Oral tab 1 tab once daily [Active]; losartan 50 mg Oral tab 1 tab once daily [Active]; - PMHx: 10:45 Arthritis; Hypertension; Prostate Cancer; vg1 - Immunization history:: Client reports receiving the 2nd dose of the Covid vaccine. - Social history:: Smoking status: Patient denies any tobacco usage or history of. Screenin:09 Abuse screen: Denies threats or abuse. Denies injuries from another. Nutritional ph screening: No deficits noted. Tuberculosis screening: No symptoms or risk factors identified. Fall Risk No fall in past 12 months (0 pts). No secondary diagnosis (0 pts). IV access (20 points). Ambulatory Aid- None/Bed Rest/Nurse Assist (0 pts). Gait- Impaired (20 pts.). Mental Status- Oriented to own ability (0 pts). Total Amaro Fall Scale indicates High Risk Score (45 or more points). Fall prevention measures have been instituted. Side Rails Up X 2 Placed Close to Nursing Station Frequent Obs/Assessments Occuring As available patient and family educated on Fall Prevention Program and Strategies. Assessment: 10:50 Reassessment: Pt taken to CT via wheelchair, accompanied by RN. ph 11:04 VAN Scoring: Arm Drift: Patients demonstrates NO arm weakness. Patient is VAN Negative. ph Reassessment: Dr. Lau at bedside to assess pt, no deficits currently noted. reports episodes of "confusion lasting a few minutes" that began at approx 0700 this morning. 11:05 General: Appears in no apparent distress. comfortable, well groomed, Behavior is calm, ph cooperative, appropriate for age, Denies fever, chills. Pain: Denies pain. Neuro: Level of Consciousness is awake, alert, obeys commands, Oriented to person, place, time, situation, Ship Joiner are equal bilaterally Moves all extremities. Full function Speech is normal, Facial symmetry appears normal, Pupils are PERRLA, Intact Denies dizziness, headache. Cardiovascular: Denies chest pain, shortness of breath, Capillary refill < 3 seconds in bilateral fingers Patient's skin is warm and dry. Respiratory: Airway is patent Respiratory effort is even, unlabored. Derm: Skin is healthy with good turgor, Skin is pink, warm \\T\\ dry. recent surgical incision noted to R knee, pt reports knee surgery on 08/31, area of redness noted below knee, dark purple bruising to R calve, pt states, " My calf feels tight". Musculoskeletal: Circulation, motion, and sensation intact. Range of motion: intact in all extremities. 11:25 Patient has been NPO before screening. The patient is alert, and able to follow commands. The patient does not exhibit slurred or garbled speech. The patient is not exhibiting difficulty speaking. The patient does not exhibit difficulty understanding words. The patient is able to swallow own secretions with no drooling or need for suction. Patient tolerated one teaspoon of water. No drooling, immediate coughing, gurgling, or clearing of the throat was noted. The patient tolerated 90mL of water. No drooling, immediate coughing, gurgling, or clearing of the throat was noted. The patient passed the bedside swallow screening. Oral medications may be given as ordered. Contact Physician for further diet orders. Provider notified of bedside swallow screening results: Vishnu Lau MD. T-PA (Activase) Screening:. 12:01 Reassessment: emergency medical technician/driver reports that while pt was in radiology he suddenly stopped ph speaking and stared off. 12:20 Reassessment: Patient appears in no apparent distress at this time. Patient and/or ph family updated on plan of care and expected duration. Pain level reassessed. Having conversation w/ pt, pt noted to stop speaking and close eyes for approx 30 seconds. 12:23 Reassessment: Dr Ogden at bedside to speak w/ pt. ph 12:36 Reassessment: Patient appears in no apparent distress at this time. Patient and/or ph family updated on plan of care and expected duration. Pain level reassessed. US at bedside. 13:30 Reassessment: Patient appears in no apparent distress at this time. No changes from previously documented assessment. Patient and/or family updated on plan of care and expected duration. Pain level reassessed. 14:23 Reassessment: Patient appears in no apparent distress at this time. Patient and/or ph family updated on plan of care and expected duration. Pain level reassessed. Pt resting quietly w/ eyes closed, respirations even and unlabored. Vital Signs: 10:42 BP 121 / 68; Pulse 87; Resp 18; Temp 98.6; Pulse Ox 98% ; Weight 133.81 kg; Height 5 vg1 ft. 11 in. (180.34 cm); Pain 0/10; 12:28 BP 128 / 64; Pulse 82; Resp 18; Pulse Ox 99% on R/A; ph 13:30 BP 121 / 89; Pulse 72; Resp 18; Pulse Ox 98% on R/A; ph 14:24 BP 120 / 75; Pulse 74; Resp 16; Pulse Ox 98% on R/A; ph 10:42 Body Mass Index 41.14 (133.81 kg, 180.34 cm) vg1 NIH Stroke Scale Scores: 11:04 NIHSS Score: 0 ph 11:14 NIHSS Score: 0 stephanie ED Course: 10:41 Patient arrived in ED. vg1 10:42 Elizabeth Rodriguez, RN is Primary Nurse. ph 10:45 Triage completed. vg1 10:45 Arm band placed on. vg1 10:49 Vishnu Lau MD is Attending Physician. stephanie 10:58 CT Stroke Brain w/o Contrast In Process Unspecified. EDMS 11:09 Inserted saline lock: 20 gauge in right forearm, using aseptic technique. Blood ph collected. 11:09 Initial lab(s) drawn, by co, sent to lab. dh3 11:10 Patient has correct armband on for positive identification. Placed in gown. Bed in low ph position. Call light in reach. night monitor on. Pulse ox on. NIBP on. 11:14 XRAY Chest (1 view) In Process Unspecified. EDMS 11:52 CT Head Angio In Process Unspecified. EDMS 11:52 CT Neck Angio In Process Unspecified. EDMS 11:59 initiated a transfer with Trey Rader from the [facility]. eb 12:16 Vernell Bray MD is Hospitalizing Provider. stephanie 12:36 No provider procedures requiring assistance completed. Patient admitted, IV remains in ph place. 13:24 US Extremity Venous W Compression Del In Process Unspecified. EDMS Administered Medications: 11:33 Drug: NS 0.9% 1000 ml Route: IV; Rate: 1 bolus; Site: right forearm; ph 14:00 Follow up: Response: No adverse reaction; IV Status: Completed infusion; IV Intake: ph 1000ml 11:33 Drug: foLIC Acid 1 mg Route: IVPB; Site: right forearm; ph 12:43 Follow up: Response: No adverse reaction; IV Status: Completed infusion ph 11:36 Drug: PlaVIX (clopidogrel) 75 mg Route: PO; ph 12:44 Follow up: Response: No adverse reaction ph 11:36 Drug: Aspirin Chewable Tablet 162 mg Route: PO; ph 12:44 Follow up: Response: No adverse reaction ph 12:05 Drug: Keppra (levETIRAcetam) 1000 mg Route: IV; Rate: per protocol; Site: right forearm;ph 12:25 Follow up: Response: No adverse reaction; IV Status: Completed infusion; IV Intake: ph 110ml Point of Care Testing: Blood Glucose: 11:12 Blood Glucose: 170 mg/dL; ph Ranges: Intake: 12:25 IV: 110ml; Total: 110ml. ph 14:00 IV: 1000ml; Total: 1110ml. ph Outcome: 12:19 Decision to Hospitalize by Provider. stephanie 14:45 Admitted to ER Hold. Please see [facility] for further documentation. ph 14:45 Condition: stable 14:45 Instructed on the need for admit. 21:59 Patient left the ED. as6 NIH Stroke Scale - NIH Stroke Score Date: 09/16/2021 Time: 11:04 Total Score = 0 1a. Level of Consciousness (LOC) - 0(Alert) 1b. Level of Consciousness (LOC) (Month \\T\\ Age) - 0(Both) 1c. LOC Commands (Open \\T\\ Closes Eyes/Personal Property Assessor) - 0(Both) 2. Best Gaze (Lateral Gaze Paresis) - 0(Normal) 3. Visual Field Loss - 0(No visual loss) 4. Facial Palsy - 0(Normal) 5a. Left Arm: Motor (10-second hold) - 0(No drift) 5b. Right Arm: Motor (10-second hold) - 0(No drift) 6a. Left Leg: Motor (5-second hold - always test supine) - 0(No drift) 6b. Right Leg: Motor (5-second hold - always test supine) - 0(No drift) 7. Limb Ataxia (finger/nose \\T\\ heel/orozco - test with eyes open) - 0(Absent) 8. Sensory Loss (pinprick arms/legs/face) - 0(Normal) 9. Best Language: Aphasia (description/naming/reading) - 0(No aphasia) 10. Dysarthria (speech clarity - read or repeat words) - 0(Normal) 11. Extinction and Inattention (visual/tactile/auditory/spatial/personal) - 0(No abnormality) Initials: NIH Stroke Scale - NIH Stroke Score Date: 09/16/2021 Time: 11:14 Total Score = 0 1a. Level of Consciousness (LOC) - 0(Alert) 1b. Level of Consciousness (LOC) (Month \\T\\ Age) - 0(Both) 1c. LOC Commands (Open \\T\\ Closes Eyes/Personal Property Assessor) - 0(Both) 2. Best Gaze (Lateral Gaze Paresis) - 0(Normal) 3. Visual Field Loss - 0(No visual loss) 4. Facial Palsy - 0(Normal) 5a. Left Arm: Motor (10-second hold) - 0(No drift) 5b. Right Arm: Motor (10-second hold) - 0(No drift) 6a. Left Leg: Motor (5-second hold - always test supine) - 0(No drift) 6b. Right Leg: Motor (5-second hold - always test supine) - 0(No drift) 7. Limb Ataxia (finger/nose \\T\\ heel/orozco - test with eyes open) - 0(Absent) 8. Sensory Loss (pinprick arms/legs/face) - 0(Normal) 9. Best Language: Aphasia (description/naming/reading) - 0(No aphasia) 10. Dysarthria (speech clarity - read or repeat words) - 0(Normal) 11. Extinction and Inattention (visual/tactile/auditory/spatial/personal) - 0(No abnormality) Initials: [facility] Signatures: Dispatcher [employer] Vishnu Salvador MD MD cha Hall, Patricia, RN RN Suze Farias 3 Caro Conrad Victoria, RN RN vg1 Rick Pantoja RN RN as6
--- NOTE | 2021-09-16 12:19 | EDPHYS ---
Physician Documentation [facility] Name: Damaso Campos Age: 71 yrs Sex: Male : 1950 Arrival Date: 09/16/2021 Time: 10:41 Bed 6 Private MD: ROSARIO Physician Vishnu Lau HPI: 09/16 11:10 This 71 yrs old Male presents to ER via Wheelchair with complaints of S/S of stephanie Possible Stroke. Historical: - Allergies: 10:45 Adhesives; vg1 10:45 latex tape; vg1 - Home Meds: 10:45 triamterene-hydrochlorothiazid 37.5-25 mg Oral cap 1 cap once daily [Active]; meloxicam vg1 15 mg Oral tab 1 tab once daily [Active]; losartan 50 mg Oral tab 1 tab once daily [Active]; - PMHx: 10:45 Arthritis; Hypertension; Prostate Cancer; vg1 - Immunization history:: Client reports receiving the 2nd dose of the Covid vaccine. - Social history:: Smoking status: Patient denies any tobacco usage or history of. ROS: 11:14 Constitutional: Negative for fever, chills, and weight loss, Eyes: Negative for injury, stephanie pain, redness, and discharge, ENT: Negative for injury, pain, and discharge, Neck: Negative for injury, pain, and swelling, Cardiovascular: Negative for chest pain, palpitations, and edema, Respiratory: Negative for shortness of breath, cough, wheezing, and pleuritic chest pain, Abdomen/GI: Negative for abdominal pain, nausea, vomiting, diarrhea, and constipation, Back: Negative for injury and pain, : Negative for injury, bleeding, discharge, and swelling, MS/Extremity: Negative for injury and deformity, Skin: Negative for injury, rash, and discoloration, Psych: Negative for depression, anxiety, suicide ideation, homicidal ideation, and hallucinations, Allergy/Immunology: Negative for hives, rash, and allergies, Endocrine: Negative for neck swelling, polydipsia, polyuria, polyphagia, and marked weight changes, Hematologic/Lymphatic: Negative for swollen nodes, abnormal bleeding, and unusual bruising. 11:14 Neuro: Positive for altered mental status, speech changes, weakness, ON AND OFF 15 SEC SPELLS, 8 TIMES SINCE THIS MORNING. Exam: 11:14 Radiologist reports: NAD stephanie 11:14 Constitutional: This is a well developed, well nourished patient who is awake, alert, and in no acute distress. Head/Face: Normocephalic, atraumatic. Eyes: Pupils equal round and reactive to light, extra-ocular motions intact. Lids and lashes normal. Conjunctiva and sclera are non-icteric and not injected. Cornea within normal limits. Periorbital areas with no swelling, redness, or edema. ENT: Nares patent. No nasal discharge, no septal abnormalities noted. Tympanic membranes are normal and external auditory canals are clear. Oropharynx with no redness, swelling, or masses, exudates, or evidence of obstruction, uvula midline. Mucous membranes moist. Neck: Trachea midline, no thyromegaly or masses palpated, and no cervical lymphadenopathy. Supple, full range of motion without nuchal rigidity, or vertebral point tenderness. No Meningismus. Chest/axilla: Normal chest wall appearance and motion. Nontender with no deformity. No lesions are appreciated. Cardiovascular: Regular rate and rhythm with a normal S1 and S2. No gallops, murmurs, or rubs. Normal PMI, no JVD. No pulse deficits. Respiratory: Lungs have equal breath sounds bilaterally, clear to auscultation and percussion. No rales, rhonchi or wheezes noted. No increased work of breathing, no retractions or nasal flaring. Neuro: Awake and alert, GCS 15, oriented to person, place, time, and situation. Cranial nerves II-XII grossly intact. Motor strength 5/5 in all extremities. Sensory grossly intact. Cerebellar exam normal. Normal gait. 11:14 Abdomen/GI: Soft, non-tender, with normal bowel sounds. No distension or tympany. No guarding or rebound. No evidence of tenderness throughout. Back: No spinal tenderness. No costovertebral tenderness. Full range of motion. Male : Normal genitalia with no discharge or lesions. Skin: Warm, dry with normal turgor. Normal color with no rashes, no lesions, and no evidence of cellulitis. 11:14 Musculoskeletal/extremity: DVT Exam: no pain, no tenderness, negative Homans' sign noted on exam, no appreciated bluish discoloration, swelling, tenderness, erythema, increased warmth, that is mild, of the left leg, of the left orozco. 12:26 ECG was reviewed by the Attending Physician. stephanie Vital Signs: 10:42 BP 121 / 68; Pulse 87; Resp 18; Temp 98.6; Pulse Ox 98% ; Weight 133.81 kg; Height 5 vg1 ft. 11 in. (180.34 cm); Pain 0/10; 12:28 BP 128 / 64; Pulse 82; Resp 18; Pulse Ox 99% on R/A; ph 13:30 BP 121 / 89; Pulse 72; Resp 18; Pulse Ox 98% on R/A; ph 14:24 BP 120 / 75; Pulse 74; Resp 16; Pulse Ox 98% on R/A; ph 10:42 Body Mass Index 41.14 (133.81 kg, 180.34 cm) vg1 NIH Stroke Scale Scores: 11:04 NIHSS Score: 0 ph 11:14 NIHSS Score: 0 stephanie MDM: 10:50 Patient medically screened. stephanie 11:20 Differential diagnosis: CVA, TIA, Dementia, paralysis, metabolic disorder. Data stephanie reviewed: vital signs, nurses notes, lab test result(s), EKG, radiologic studies, CT scan, plain films. Data interpreted: traffic monitor specialist: rate is 87 beats/min. Test interpretation: by ED physician or midlevel provider: ECG, plain radiologic studies. Counseling: I had a detailed discussion with the patient and/or guardian regarding: the historical points, exam findings, and any diagnostic results supporting the discharge/admit diagnosis, lab results, radiology results, the need for outpatient follow up, the need for further work-up and treatment in the hospital. Physician consultation: Octaviano Lopes MD regarding consult, patient's condition, and will see patient in inpatient room, ASA, PLAVIX , KEPPRA. 09/16 10:53 Order name: Basic Metabolic Panel 09/16 10:53 Order name: CBC with Diff 09/16 10:53 Order name: LFT's 09/16 10:53 Order name: Magnesium [facility] 09/16 10:53 Order name: NT PRO-BNP stephanie 09/16 10:53 Order name: PT-INR; Complete Time: 12:06 [facility] 09/16 10:53 Order name: Troponin HS [facility] 09/16 10:53 Order name: Ptt, Activated; Complete Time: 12:06 [facility] 09/16 11:18 Order name: Glucose, Ancillary Testing; Complete Time: 12:06 EDMS 09/16 12:01 Order name: SARS-COV-2 RT PCR (Document "Date of Onset" if Symptomatic) 09/16 12:08 Order name: CRP [facility] 09/16 12:08 Order name: Sed Rate [facility] 09/16 12:11 Order name: C-Reactive Protein [facility] 09/16 10:53 Order name: XRAY Chest (1 view); Complete Time: 12:06 [facility] 09/16 10:53 Order name: CT Stroke Brain w/o Contrast; Complete Time: 12:06 [facility] 09/16 10:53 Order name: CT Head Angio; Complete Time: 12:09 [facility] 09/16 10:53 Order name: CT Neck Angio; Complete Time: 12:06 [facility] 09/16 11:19 Order name: US Extremity Venous W Compression Del [facility] 09/16 12:20 Order name: Manual Differential [facility] 09/16 12:43 Order name: Urine Dipstick-Ancillary [facility] 09/16 13:36 Order name: Comprehensive Metabolic Panel [facility] 09/16 13:36 Order name: Echo with Doppler [facility] 09/16 13:36 Order name: EEG Request [facility] 09/16 13:36 Order name: Brain Wo Cont [facility] 09/16 13:37 Order name: MRA Head Wo Cont [facility] 09/16 13:37 Order name: Chest Pa And Lat (2 Views) [facility] 09/16 21:12 Order name: CREATININE WHOLE BLOOD [facility] 09/16 10:53 Order name: EKG; Complete Time: 10:54 [facility] 09/16 10:53 Order name: Cardiac monitoring; Complete Time: 12:38 [facility] 09/16 10:53 Order name: EKG - Nurse/Tech; Complete Time: 12:38 [facility] 09/16 10:53 Order name: IV Saline Lock; Complete Time: 11:12 [facility] 09/16 10:53 Order name: Labs collected and sent; Complete Time: 11:12 [facility] 09/16 10:53 Order name: O2 Per Protocol; Complete Time: 11:13 [facility] 09/16 10:53 Order name: O2 Sat Monitoring; Complete Time: 11:13 [facility] 09/16 10:53 Order name: Accucheck; Complete Time: 11:13 [facility] 09/16 10:53 Order name: NPO; Complete Time: 11:13 [facility] 09/16 10:53 Order name: Stroke Swallow Screen; Complete Time: 11:38 [facility] 09/16 10:53 Order name: Urine Dipstick-Ancillary (obtain specimen); Complete Time: 12:43 [facility] 09/16 13:36 Order name: CONS Physician Consult EDWV 09/16 13:36 Order name: EKG Electrocardiogram EDMS EC:26 Rate is 72 beats/min. Rhythm is regular. QRS [place] is Normal. MD interval is normal. QRS stephanie interval is normal. QT interval is normal. No Q waves. T waves are Normal. No ST changes noted. Clinical impression: NSR w/ Non-specific ST/T Changes and No evidence of ischemia. Interpreted by me. Reviewed by me. Administered Medications: 11:33 Drug: NS 0.9% 1000 ml Route: IV; Rate: 1 bolus; Site: right forearm; ph 14:00 Follow up: Response: No adverse reaction; IV Status: Completed infusion; IV Intake: ph 1000ml 11:33 Drug: foLIC Acid 1 mg Route: IVPB; Site: right forearm; ph 12:43 Follow up: Response: No adverse reaction; IV Status: Completed infusion ph 11:36 Drug: PlaVIX (clopidogrel) 75 mg Route: PO; ph 12:44 Follow up: Response: No adverse reaction ph 11:36 Drug: Aspirin Chewable Tablet 162 mg Route: PO; ph 12:44 Follow up: Response: No adverse reaction ph 12:05 Drug: Keppra (levETIRAcetam) 1000 mg Route: IV; Rate: per protocol; Site: right forearm;ph 12:25 Follow up: Response: No adverse reaction; IV Status: Completed infusion; IV Intake: ph 110ml Point of Care Testing: Blood Glucose: 11:12 Blood Glucose: 170 mg/dL; ph Ranges: Critical Glucose Levels:Adult <50 mg/dl or >400 mg/dl <40 mg/dl or >180 mg/dl Disposition Summary: 09/16/21 12:19 Hospitalization Ordered Hospitalization Status: Observation stephanie Provider: Vernell Bray cha Condition: Stable stephanie Problem: new stephanie Symptoms: have improved stephanie Bed/Room Type: Standard stephanie Location: Telemetry/MedSurg (Inpatient)(09/16/21 20:06) mw Room Assignment: 220(09/16/21 20:06) mw Diagnosis - Altered mental status, unspecified stephanie - Other seizures - ABSENCE stephanie - Essential (primary) hypertension stephanie - Obesity, unspecified stephanie Forms: - Medication Reconciliation Form stephanie - SBAR form stephanie NIH Stroke Scale - NIH Stroke Score Date: 09/16/2021 Time: 11:04 Total Score = 0 1a. Level of Consciousness (LOC) - 0(Alert) 1b. Level of Consciousness (LOC) (Month \\T\\ Age) - 0(Both) 1c. LOC Commands (Open \\T\\ Closes Eyes/Fingerprint Technician) - 0(Both) 2. Best Gaze (Lateral Gaze Paresis) - 0(Normal) 3. Visual Field Loss - 0(No visual loss) 4. Facial Palsy - 0(Normal) 5a. Left Arm: Motor (10-second hold) - 0(No drift) 5b. Right Arm: Motor (10-second hold) - 0(No drift) 6a. Left Leg: Motor (5-second hold - always test supine) - 0(No drift) 6b. Right Leg: Motor (5-second hold - always test supine) - 0(No drift) 7. Limb Ataxia (finger/nose \\T\\ heel/orozco - test with eyes open) - 0(Absent) 8. Sensory Loss (pinprick arms/legs/face) - 0(Normal) 9. Best Language: Aphasia (description/naming/reading) - 0(No aphasia) 10. Dysarthria (speech clarity - read or repeat words) - 0(Normal) 11. Extinction and Inattention (visual/tactile/auditory/spatial/personal) - 0(No abnormality) Initials: NIH Stroke Scale - NIH Stroke Score Date: 09/16/2021 Time: 11:14 Total Score = 0 1a. Level of Consciousness (LOC) - 0(Alert) 1b. Level of Consciousness (LOC) (Month \\T\\ Age) - 0(Both) 1c. LOC Commands (Open \\T\\ Closes Eyes/Fingerprint Technician) - 0(Both) 2. Best Gaze (Lateral Gaze Paresis) - 0(Normal) 3. Visual Field Loss - 0(No visual loss) 4. Facial Palsy - 0(Normal) 5a. Left Arm: Motor (10-second hold) - 0(No drift) 5b. Right Arm: Motor (10-second hold) - 0(No drift) 6a. Left Leg: Motor (5-second hold - always test supine) - 0(No drift) 6b. Right Leg: Motor (5-second hold - always test supine) - 0(No drift) 7. Limb Ataxia (finger/nose \\T\\ heel/orozco - test with eyes open) - 0(Absent) 8. Sensory Loss (pinprick arms/legs/face) - 0(Normal) 9. Best Language: Aphasia (description/naming/reading) - 0(No aphasia) 10. Dysarthria (speech clarity - read or repeat words) - 0(Normal) 11. Extinction and Inattention (visual/tactile/auditory/spatial/personal) - 0(No abnormality) Initials: [facility] Signatures: Dispatcher [employer] EDMS Kourtney Jaffe RN RN Vishnu Clement MD MD cha Hall, Patricia RN RN Caro Conrad Victoria, RN RN vg1 Corrections: (The following items were deleted from the chart) 12:10 12:09 C-Reactive Protein ordered. EDMS EDMS 13:37 13:36 Speech Therapy Consult ordered. EDWV EDMS 14:33 12:19 Telemetry/MedSurg (observation) [facility] eb 14:33 12:19 [facility] eb 20:06 14:33 [facility] ER HOLD eb mw 20:06 14:33 ERHOLD- eb mw
[2021-09-16 12:21] LABS: Blood Morphology Comment NOT SEEN (NOT SEEN); Platelet Estimate ADEQ
[2021-09-16 12:35] LABS: C-Reactive Protein 11.6 mg/L (<3.00)
[2021-09-16 12:44] LABS: Urine Blood Negative (Negative); Urine Glucose Negative (Negative); Urine Protein Negative (Negative); Urine Specific Gravity 1.015 (1.005-1.030)
[2021-09-16] MEDS ORDERED: ONDANSETRON 4 MG/2 ML VIAL IV PRN (13:30)
[2021-09-16] MEDS ORDERED: ACETAMINOPHEN 500 MG TAB PO PRN (13:30)
--- NOTE | 2021-09-16 13:58 | RAD REPORT ---
EXAM DESCRIPTION: USExtrem Venous W Compress Bil09/16/2021 1:23 pm CLINICAL HISTORY: Leg pain COMPARISON: none FINDINGS: The common femoral, superficial femoral, popliteal and posterior tibial veins bilaterally are compressible and demonstrate augmentation. Doppler demonstrates good flow. IMPRESSION: No evidence of deep venous thrombosis involving either lower extremity.
[2021-09-16] MEDS: NA CHLORIDE 0.9% 1,000 ML IV SCH (14:00)
[2021-09-16] MEDS: ENOXAPARIN 40 MG/0.4 ML SQ SCH (15:00)
[2021-09-16] MEDS ORDERED: ENOXAPARIN 40 MG/0.4 ML SQ ONE (15:02)
[2021-09-16 17:16] VITALS: BMI 41.1
[2021-09-16] MEDS ORDERED: levETIRAcetam 500 MG in NA CHLORIDE 0.9% 100 ML IV SCH (21:00)
[2021-09-17] MEDS ORDERED: NA CHLORIDE 0.9% 100 ML ONE ×3 (00:53→07:34)
[2021-09-17] MEDS ORDERED: LEVETIRACETAM 500 MG/5 ML VIAL IV ONE (01:00)
--- NOTE | 2021-09-17 01:12 | P.HP ---
Certification for Inpatient Patient admitted to: Inpatient With expected LOS: >2 Midnights Patient will require the following post-hospital care: None Practitioner: I am a practitioner with admitting privileges, knowledge of patient current condition, hospital course, and medical plan of care. Services: Services provided to patient in accordance with Admission requirements found in Title 42 Section 412.3 of the Code of Federal Regulations Patient History Date of Service: 09/16/21 Reason for admission: Acute seizure; status epilepticus History of Present Illness: Patient is a 71yo who presented with seizure. Patient has had recent left knee surgery. He has been doing well. He was noted to have multiple episodes of staring and he was found to have multiple seizures. 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 He will be admitted for status epilepticus. Allergies adhesive tape Adverse Reaction (Intermediate, Verified 09/16/20 14:20) Itching/Hives/Rash adhesive tape Adverse Reaction (Intermediate, Uncoded 09/16/20 14:20) Itching/Hives/Rash Home Medications: Triamterene/Hydrochlorothiazid [Triamterene-Hctz 37.5-25 mg Cp] 1 tab PO DAILY WITH BREAKFAST 02/25/14 Meloxicam [Mobic*] 15 mg PO DAILY 09/15/20 Valsartan 1 tab PO DAILY 09/15/20 - Past Medical/Surgical History Diabetic: No -: htn -: History of prostate cancer -: arthritis -: Arterial vascular malformation -: lens implant left eye 2000 -: total right knee replaced 2009 -: prostate surg.2002 -: avm-brain surg age 6 - Family History Mother Medical History: Cancer Brother Medical History: Diabetes - Social History Alcohol use: No CD- Drugs: No Caffeine use: No Review of Systems 10-point ROS is otherwise unremarkable Physical Examination - Vital Signs Temperature: 97.2 F Blood Pressure: 110/75 Pulse: 67 Respirations: 16 Pulse Ox (%): 97 - Physical Exam General: Alert, In no apparent distress, Oriented x3 HEENT: Atraumatic, PERRLA, Mucous membr. moist/pink, EOMI, Sclerae nonicteric Neck: Supple, 2+ carotid pulse no bruit, No LAD, Without JVD or thyroid abnormality Respiratory: Clear to auscultation bilaterally, Normal air movement Cardiovascular: Regular rate/rhythm, Normal S1 S2 Gastrointestinal: Normal bowel sounds, No tenderness Musculoskeletal: No tenderness Integumentary: No rashes Neurological: Normal gait, Normal speech, Normal strength at 5/5 x4 extr, Normal tone, Normal affect Lymphatics: No axilla or inguinal lymphadenopathy - Studies Laboratory Data (last 24 hrs) 09/16/21 11:07: PT 12.5, INR 1.09, APTT 31.0 09/16/21 11:07: WBC 8.20, Hgb 12.5 L, Hct 36.5 L, Plt Count 284 09/16/21 11:07: Sodium 126 L, Potassium 3.6, BUN 16, Creatinine 0.99, Glucose 176 H, Magnesium 2.2, Total Bilirubin 0.8, AST 41 H, ALT 56, Alkaline Phosphatase 127 H Assessment & Plan - Problems (Diagnosis) (1) Status epilepticus Current Visit: Yes Status: Acute (2) H/O arteriovenous malformation (AVM) Current Visit: Yes Status: Acute (3) S/P craniotomy Current Visit: Yes Status: Acute (4) S/P total knee arthroplasty Current Visit: No Status: Acute - Plan -Anti epileptics -EEG -MRI and CT of the brain -neurology consultation -Ativan as needed -seizure precaution -physical therapy evaluation Discharge Plan: Home Plan to discharge in: Greater than 2 days - Advance Directives Does patient have a Living Will: No Does patient have a Durable POA for Healthcare: No - Code Status/Comfort Care Code Status Assessed: Yes Code Status: Full Code Critical Care: No Time Spent Managing PTS Care (In Minutes): 45
[2021-09-17] MEDS: NA CHLORIDE 0.9% 1,000 ML IV SCH ×2 (01:15→14:24)
[2021-09-17] MEDS: ATORVASTATIN 40 MG TAB PO SCH ×2 (01:16→21:04)
[2021-09-17 06:23] LABS: Absolute Lymphocytes (CBC) 1.9 K/uL (0.7-4.9); Hematocrit 36.2 % (39.6-49.0); Lymphocytes % 22.9 % (15.3-44.8); MPV 8.2 fL (7.6-11.3); RBC Red Blood Cell Count 4.05 M/uL (4.33-5.43)
[2021-09-17 06:44] LABS: Albumin 3.5 g/dL (3.4-5.0); Bilirubin Total 0.7 mg/dL (0.2-1.0); Magnesium 2.3 mg/dL (1.8-2.4); Potassium 3.6 mmol/L (3.5-5.1); Protein, Total 7.3 g/dL (6.4-8.2); Thyroid Stimulating Hormone 1.59 uIU/mL (0.360-3.740)
[2021-09-17] MEDS ORDERED: POTASSIUM CL SA 10 MEQ TAB PO ONE (09:00)
[2021-09-17] MEDS ORDERED: levETIRAcetam 500 MG in NA CHLORIDE 0.9% 100 ML IV SCH (09:00)
[2021-09-17] MEDS ORDERED: CLOPIDOGREL 75 MG TABLET PO SCH (09:00)
[2021-09-17] MEDS: ASPIRIN EC 81 MG TAB PO SCH (09:13)
[2021-09-17] MEDS: ENOXAPARIN 40 MG/0.4 ML SQ SCH (09:13)
[2021-09-17 09:28] LABS: Barbiturates NEGATIVE (NEGATIVE); Benzodiazepines NEGATIVE (NEGATIVE); Cocaine NEGATIVE (NEGATIVE); METHAMPHETAM NEGATIVE (NEGATIVE); Methadone NEGATIVE (NEGATIVE); Opiates NEGATIVE (NEGATIVE); Phencyclidine NEGATIVE (NEGATIVE); THC Cannibis NEGATIVE (NEGATIVE)
[2021-09-17] MEDS ORDERED: FOSPHENYTOIN PE 1,000 MG in NA CHLORIDE 0.9% 100 ML IV ONE (14:00)
[2021-09-17] MEDS: levETIRAcetam 1,000 MG in NA CHLORIDE 0.9% 100 ML IV SCH (21:04)
--- NOTE | 2021-09-18 00:01 | P.PN ---
Subjective Date of Service: 09/17/21 Patient is still having episodes of seizure activity. EEG and MRI pending in the morning. was upset because patient was a little confused. Load with fosphenytoin. Waiting for neurology consultation. Review of Systems 10-point ROS is otherwise unremarkable Physical Examination - Vital Signs Temperature: 97.6 F Blood Pressure: 146/72 Pulse: 63 Respirations: 18 Pulse Ox (%): 90 - Physical Exam General: Alert, In no apparent distress HEENT: Atraumatic, PERRLA, EOMI Neck: Supple, JVD not distended Respiratory: Clear to auscultation bilaterally, Normal air movement Cardiovascular: Regular rate/rhythm, Normal S1 S2 Gastrointestinal: Normal bowel sounds, No tenderness Musculoskeletal: No tenderness Integumentary: No rashes Neurological: Normal speech, Normal tone, Normal affect Lymphatics: No axilla or inguinal lymphadenopathy - Studies Medications List Reviewed: Yes Assessment & Plan - Problems (Diagnosis) (1) Status epilepticus Current Visit: Yes Status: Acute (2) H/O arteriovenous malformation (AVM) Current Visit: Yes Status: Acute (3) S/P craniotomy Current Visit: Yes Status: Acute (4) S/P total knee arthroplasty Current Visit: No Status: Acute - Plan -Anti epileptics; started Keppra and fosphenytoin -EEG pending -MRI and CT of the brain -neurology consultation pending -Ativan as needed -seizure precaution -physical therapy evaluation Discharge Plan: Home Plan to discharge in: Greater than 2 days - Advance Directives Does patient have a Living Will: No Does patient have a Durable POA for Healthcare: No - Code Status/Comfort Care Code Status: Full Code Critical Care: No Time Spent Managing PTS Care (In Minutes): 35
[2021-09-18] MEDS: NA CHLORIDE 0.9% 1,000 ML IV SCH ×2 (06:00→21:16)
[2021-09-18] MEDS: SODIUM CHLORIDE 1 GM TAB PO SCH ×2 (08:00→17:00)
[2021-09-18] MEDS: levETIRAcetam 1,000 MG in NA CHLORIDE 0.9% 100 ML IV SCH ×2 (11:14→21:17)
[2021-09-18] MEDS: ENOXAPARIN 40 MG/0.4 ML SQ SCH (11:15)
[2021-09-18] MEDS: CLOPIDOGREL 75 MG TABLET PO SCH (11:15)
[2021-09-18] MEDS: ASPIRIN EC 81 MG TAB PO SCH (11:15)
--- NOTE | 2021-09-18 11:42 | RAD REPORT ---
EXAM DESCRIPTION: MRI - MRA Head Wo Cont - 09/18/2021 9:54 am CLINICAL HISTORY: Acute CVA CVA COMPARISON: Head angio dated 09/16/2021; Brain Wo Cont dated 09/18/2021; Ct Stroke Brain Wo Cont dated 09/16/2021 FINDINGS: 3D noncontrast [id number] MR angiography of the [place] was performed. No aneurysm, flow-limiting stenosis or vascular malformation is seen. Forward flow seen in codominant vertebral arteries. The visualized dural venous sinuses appear patent. IMPRESSION: No significant flow abnormality of the [place] is identified.
--- NOTE | 2021-09-18 11:44 | RAD REPORT ---
EXAM DESCRIPTION: MRI - Brain Wo Cont - 09/18/2021 9:53 am CLINICAL HISTORY: Acute CVA Headache, drowsiness COMPARISON: MRA Head Wo Cont dated 09/18/2021 TECHNIQUE: Multi-sequence, multiplanar MR imaging of the brain was performed without contrast. FINDINGS: Motion degraded examination is submitted. No intracranial hemorrhage, hydrocephalus or extra-axial fluid collections. Postsurgical changes are present in the right frontal lobe with significant gliosis present. DWI is negative for acute CVA. Midline structures are normally formed. Mastoid air cells and paranasal sinuses are clear. IMPRESSION: Negative for acute CVA or other acute intracranial finding. Postsurgical changes are seen right frontal lobe.
--- NOTE | 2021-09-18 14:28 | P.PN ---
Subjective Date of Service: 09/18/21 Chief Complaint: Acute seizure; status epilepticus Subjective: No new changes (Continues to have staring spells. EEG was positive. I discussed with Dr. Lopes and he feels like the site of AVM repair the frontal lobe is the primary focus) Physical Examination - Vital Signs Temperature: 98.2 F Blood Pressure: 140/80 Pulse: 73 Respirations: 20 Pulse Ox (%): 99 - Physical Exam General: Alert, In no apparent distress HEENT: Atraumatic, Normocephalic Neck: Supple Musculoskeletal: No clubbing, No swelling Neurological: Normal speech - Studies Medications List Reviewed: Yes Assessment & Plan - Problems (Diagnosis) (1) H/O arteriovenous malformation (AVM) Current Visit: Yes Status: Acute (2) S/P craniotomy Current Visit: Yes Status: Acute (3) Status epilepticus Current Visit: Yes Status: Acute (4) Hypertension Current Visit: No Status: Chronic Qualifiers: Hypertension type: essential hypertension Physician Review: Patient Assessed, Agree with Above Assessment and Plan Physician Review Additional Text: Assessment Patient is 71-year-old male with a past medical history of AVM status post repair with postop course complicated by seizure 1 year after surgery. He is brought in for seizure evaluation after he developed several episodes of staring spells. His EEG was positive today. Brain MRI and MRA were unremarkable. I have discussed with Dr. Lopes the neurologist on-call. Seizure episode AVM malformation status post repair Hypertension Hyponatremia Plan: Continue Keppra 1000 twice daily. Check levels tomorrow Continue telemetry monitoring Patient can be discharged tomorrow if Keppra levels are within therapeutic limits His blood pressure is within normal limits Today sodium is 134.
--- NOTE | 2021-09-18 14:36 | EEG ---
CHART: [id number] TEST ID#: [id number] DATE OF STUDY: 08/21/2021 THE EEG WAS RECORDED IN THE EEG LABORATORY ON A 17 CHANNEL MACHINE. ELECTRODES WERE APPLIED IN THE USUAL MANNER USING THE INTERNATIONAL 10-20 SYSTEM. THE WAKING BACKGROUND RHYTHM IN THIS RECORD CONSISTS OF FAIRLY WELL DEVELOPED AND FAIRLY WELL ORGANIZED WAVES OF 9 HZ., MAXIMAL IN THE POSTERIOR HEAD REGIONS WHICH ATTENUATE NORMALLY WITH EYE OPENING. ONE CLINICAL AND ELECTROGRAPHIC SEIZURE WAS CAPTURED, THE PATIENT WAS STARING BLANKLY DURING THE EPISODE. THE EVENT LASTED FOUR MINUTES AND TWENTY SECONDS BEGINNING WITH MODERATE VOLTAGE 8 HZ RHYTHMIC SHARP WAVES IN THE RIGHT FRONTAL REGIONS AND EVOLVING TO 4 HZ SHARP WAVES AT THE END. THERE ARE NO FOCAL OR LATERALIZING FEATURES. NO EPILEPTIFORM ACTIVITY APPEARS. SLEEP DID NOT OCCUR. HYPERVENTILATION WAS NOT PERFORMED. PHOTIC STIMULATION PRODUCED FAIR DRIVING BILATERALLY. IMPRESSION: THIS IS AN ABNORMAL ROUTINE AWAKE EEG DUE TO THE OCCURANCE OF A RIGHT FRONTAL SEIZURE WITH SEMIOLOGY OF BLANK STARING ACCOMPAINIED BY CONTINUOUS RHYTHMC SHARP WAVES MODULATING FROM 8 HZ AT ONSET OVER FOUR MINUTES AND TWENTY SECONDS. THIS FINDING DEMONSTRATES AN EPILEPTOGENIC LESION IN THE RIGHT FROTNAL REGION.
--- NOTE | 2021-09-18 14:42 | ECHO ---
HEIGHT: 5 ft 11 in WEIGHT: 295 lb 0.009 oz DATE OF STUDY: 09/18/[address]: Vernell Bray MD 2-DIMENSIONAL: YES M.MODE: YES DOPPLER: YES COLOR FLOW: YES TDS: PORTABLE: DEFINITY: BUBBLE STUDY: DIAGNOSIS: STROKE CARDIAC HISTORY: CATHERIZATION: NO SURGERY: NO PROSTHETIC VALVE: NO PACEMAKER: NO MEASUREMENTS (cm) DIASTOLIC (NORMALS) SYSTOLIC (NORMALS) IVSd 1.0 (0.6-1.2) LA Diam 2.9 (1.9-4.0) LVEF 73% LVIDd 5.9 (3.5-5.7) LVIDs 3.3 (2.0-3.5) %FS 43% LVPWd 1.0 (0.6-1.2) Ao Diam 3.4 (2.0-3.7) 2 DIMENSIONAL ASSESSMENT: RIGHT ATRIUM: NORMAL LEFT ATRIUM: NORMAL RIGHT VENTRICLE: NORMAL LEFT VENTRICLE: NORMAL TRICUSPID VALVE: NORMAL MITRAL VALVE: NORMAL PULMONIC VALVE: NORMAL AORTIC VALVE: NORMAL PERICARDIAL EFFUSION: NONE AORTIC ROOT: NORMAL LEFT VENTRICULAR WALL MOTION: NORMAL DOPPLER/COLOR FLOW: SEE BELOW COMMENTS: NORMAL LEFT VENTRICULAR EJECTION FRACTION 60-65%. NORMAL WALL MOTION. MILD TRICUSPID REGURGITATION. MILD MITRAL REGURGITATION. TECHNOLOGIST: SHREE VAUGHN
[2021-09-18] MEDS: ATORVASTATIN 40 MG TAB PO SCH (21:13)
--- NOTE | 2021-09-18 23:58 | CON ---
Reason For Consultation: Consultation called because of multiple seizures and admission due to statu s epilepticus. History Of Present Illness: Mr. Campos is a 71-year-old right-handed patient who comes in w ith multiple seizures. The patient's was at bedside and provided information. He has a history of an arteriovenous malformation, which was treated surgically several years ago, and one year after that he actually had his first seizure. His workup was negative for any bleeding and she reports hi s EEG did not show any abnormalities, and he was not started on antiepileptic medications. She said he did well until 2 days ago when while driving he suddenly began staring off, could not respond to h rodney . He still maintained the wheel and was stiff. That continued for about 15 to 20 seconds. Waldo walker had several [id number]-oh-vuhs similar episodes and eventually was brought to [facility] on the 16 of September, where he had more episodes of staring off unresponsively with some disorientation an d confusion following the event. The also says that at other times prior to that episode when d riving, he would suddenly drop objects or suddenly seemed to lose awareness. At [facility], he was loaded with Keppra. His head CT scan showed no acute ischemic or hemorrhagic change. There was the postsurgical change noted due to the AVM repair. We also saw calcification in the right fron josh lobe where the AVM was. Subsequent brain MRI confirmed the presence of a postsurgical finding, b ut was negative for any intracerebral hemorrhage or a new stroke. The patient's EEG was done, and du ring that time he did have about a 4-minute 20-second seizure coming out of the right frontal lobe. The patient's said that he was more confused and disoriented up to earlier today around noon, wh en he seemed to suddenly awaken and interacted with her properly. At the time of my evaluation, he w as somewhat sleepy, but was appropriate. He did not have any tonic or clonic activity. Past Medical History: Hypertension, prostate cancer, arthritis disease, recent left knee surgery fro m which he is recovering. He has lens implant in the left eye, and total right knee replacement was 2009, prostate surgery in 2002, and AVM surgery 6 years ago. Medications: At home, losartan, meloxicam, triamterene hydrochlorothiazide. Allergies: ADHESIVE TAPE. Family History: Brother with diabetes. Mother with cancer. Social History: No alcohol, tobacco, or IV drug use. Review of Systems: Aside from mentioned above. No recent fevers, chills, nausea, vomiting, myalgias, arthralgias, heada sobia, weight change, rash, psychiatric complaints, gastrointestinal or genitourinary issues. Physical Examination: Vital Signs: Blood pressure 140/80, pulse 73, respiratory rate 16, temperature 98.2, oxygen saturati on 100% on room air. Weight 295 pounds, height 5 feet 11 inches, BMI 44. Laboratory Studies: Complete blood count with differential, white blood cell count 8.3, hemoglobin 1 2.5, INR 1.09. Chemistries: Sodium 134, glucose 116. Liver function studies show slightly elevated AST of 41, otherwise normal. LDL cholesterol 88, HDL cholesterol 46, TSH 1.59. His urine drug scre en is negative. COVID-19 test is negative. Urinalysis is negative. His echocardiogram shows ejecti on fraction 73%, is essentially unremarkable study except for mild tricuspid and mitral regurgitation . Venous Doppler of the lower extremities and the legs showed no DVT in the legs on Doppler. Assessment: Mr. Campos is a 71-year-old patient with a right frontal arteriovenous malformation statu s post repair, and EEG shows that to be a focus of seizure. The patient is now on Keppra 1000 mg twi ce daily. We will check blood level in the morning. Plan: Continue aspirin, Plavix, statin. Continue Keppra 1000 mg twice daily. The patient may be di scharged home in the morning after blood Keppra level is drawn. He should follow up in Dr. Lopes' s clinic in a month. Follow up with primary care physician and continue medications for stroke risk re duction as indicated. LB/MODL Voice ID: [id number] Report ID: [id number]
[2021-09-19] MEDS: SODIUM CHLORIDE 1 GM TAB PO SCH (08:00)
--- NOTE | 2021-09-19 09:54 | P.DS ---
Admission Date: 09/16/21 Discharge Date: 09/19/21 Disposition: ROUTINE DISCHARGE Discharge Condition: GOOD Reason for Admission: Acute seizure; status epilepticus Consultations: Neurology - Problems (1) H/O arteriovenous malformation (AVM) Current Visit: Yes Status: Acute (2) S/P craniotomy Current Visit: Yes Status: Acute (3) Status epilepticus Current Visit: Yes Status: Acute (4) Hypertension Current Visit: No Status: Chronic Qualifiers: Hypertension type: essential hypertension Hospital Course: Patient is a 71 year old male with a PMH of AVM s/p repair. He was admitted for seizure evaluation after several episodes of witnessed staring spells. His EEG showed an epileptogenic lesion in the R frontal region. Neurology was consulted as well and he will be discharged on Keppra. He will have to refrain from driving. This was discussed with the patient. Vital Signs/Physical Exam: Temp Pulse Resp BP Pulse Ox 98.0 F 57 16 129/65 97 09/19/21 08:00 09/19/21 08:00 09/19/21 08:00 09/19/21 08:00 09/19/21 08:00 General: Alert, In no apparent distress HEENT: Atraumatic, Normocephalic Respiratory: Clear to auscultation bilaterally, Normal air movement Cardiovascular: Regular rate/rhythm, Normal S1 S2 Musculoskeletal: No clubbing, No swelling Neurological: Normal speech, Normal affect Laboratory Data at Discharge: WBC 8.30 K/uL (4.3-10.9) 09/17/21 05:08 Hgb 12.5 g/dL (13.6-17.9) L 09/17/21 05:08 Hct 36.2 % (39.6-49.0) L 09/17/21 05:08 Plt Count 295 K/uL (152-406) 09/17/21 05:08 PT 12.5 SECONDS (9.5-12.5) 09/16/21 11:07 INR 1.09 09/16/21 11:07 APTT 31.0 SECONDS (24.3-36.9) 09/16/21 11:07 Sodium 134 mmol/L (136-145) L 09/18/21 05:35 Potassium 4.0 mmol/L (3.5-5.1) 09/18/21 05:35 BUN 15 mg/dL (7-18) 09/18/21 05:35 Creatinine 0.90 mg/dL (0.55-1.3) 09/18/21 05:35 Glucose 116 mg/dL (74-106) H 09/18/21 05:35 Phosphorus 3.0 mg/dL (2.5-4.9) 09/17/21 05:08 Magnesium 2.3 mg/dL (1.8-2.4) 09/17/21 05:08 Total Bilirubin 0.7 mg/dL (0.2-1.0) 09/17/21 05:08 AST 41 U/L (15-37) H 09/17/21 05:08 ALT 53 U/L (12-78) 09/17/21 05:08 Alkaline Phosphatase 112 U/L (45-117) 09/17/21 05:08 Triglycerides 85 mg/dL (<150) 09/17/21 05:08 Cholesterol 151 mg/dL (<200) 09/17/21 05:08 HDL Cholesterol 46 mg/dL (40-60) 09/17/21 05:08 Cholesterol/HDL Ratio 3.28 09/17/21 05:08 Home Medications: Triamterene/Hydrochlorothiazid [Triamterene-Hctz 37.5-25 mg Cp] 1 tab PO DAILY WITH BREAKFAST 02/25/14 Meloxicam [Mobic*] 15 mg PO DAILY 09/15/20 Valsartan 1 tab PO DAILY 09/15/20 Aspirin [Aspirin EC 81 MG] 81 mg PO DAILY #30 tablet. 09/19/21 Atorvastatin Calcium [Lipitor] 80 mg PO DAILY #30 tablet 09/19/21 Clopidogrel Bisulfate [Plavix*] 75 mg PO DAILY #30 tablet 09/19/21 Levetiracetam [Keppra] 1,000 mg PO BID #60 tablet 09/19/21 New Medications: Aspirin [Aspirin EC 81 MG] 81 mg PO DAILY #30 tablet. Levetiracetam [Keppra] 1,000 mg PO BID #60 tablet Atorvastatin Calcium [Lipitor] 80 mg PO DAILY #30 tablet Clopidogrel Bisulfate [Plavix*] 75 mg PO DAILY #30 tablet Followup: Unknown,U [Primary Care Provider] -
[2021-09-19] MEDS: levETIRAcetam 1,000 MG in NA CHLORIDE 0.9% 100 ML IV SCH (10:19)
[2021-09-19] MEDS: ASPIRIN EC 81 MG TAB PO SCH (10:20)
[2021-09-19] MEDS: CLOPIDOGREL 75 MG TABLET PO SCH (10:20)
[2021-09-19] MEDS: ENOXAPARIN 40 MG/0.4 ML SQ SCH (10:20)
[2021-09-19] MEDS: NA CHLORIDE 0.9% 1,000 ML IV SCH (10:25)
[2021-09-19 12:02] VITALS: BP 137/77; TEMP 97.4
[2021-09-19 13:25] VITALS: O2SAT 98
--- NOTE | 2021-09-19 21:55 | PN ---
Subjective: Mr. Campos is doing well. His denies any significant repeats of episodes of confusi on since yesterday. The patient has no new complaints. Objective: VITAL SIGNS: Blood pressure 137/77, pulse 53, respiratory rate 16, temperature 97.4, oxy gen saturation 98% on room air. Mr. Campos is sitting in a chair. His is in the room with him. He has no focal deficits. He is appropriate in terms of his speech and communication. Laboratory Studies: He has no new laboratory studies. Assessment: Mr. Campos is a 71-year-old patient who has had seizures, possibly coming from the right frontal arteriovenous malformation at the repair site where he had a craniotomy. He has had no addit ional seizures. He is now on Keppra 1000 mg twice daily. He is on oral medication. He is on aspiri n, Plavix, statin, and is doing well. The importance of reducing seizure frequency by addressing ris k factors for seizures was stressed with the patient's . Plan: 1.Discharge home. 2.Continue medications as indicated. 3.Follow up with Dr. Lopes's clinic in 1 month. 4.Maintain diary events and may consider ambulatory video EEG monitoring if he has persistent episod es. IMITAZ/FAYE Voice ID: [id number] Report ID: [id number]
== END 2021-09-19 15:02 | disposition home or self-care (01) | DRG 101 ==
LOC: ER 10:39 → ERHOLD 14:08 → 2ND 20:43
PROVIDERS: ADMIT Hospitalist; ATTEND Internal Medicine
DX: G40.801 Other epilepsy, not intractable, with status epilepticus (principal); Z68.41 Body mass index [BMI] 40.0-44.9, adult; E87.1 Hypo-osmolality and hyponatremia; E66.9 Obesity, unspecified; I10 Essential (primary) hypertension; C61 Malignant neoplasm of prostate; Z91.040 Latex allergy status; Z91.048 Other nonmedicinal substance allergy status; Z79.899 Other long term (current) drug therapy; Z96.651 Presence of right artificial knee joint; Z79.82 Long term (current) use of aspirin; Z79.02 Long term (current) use of antithrombotics/antiplatelets
CPT/HCPCS: 36415; 70450; 70496; 70498; 70544; 70551; 71045; 80048; 80053; 80061; 80076; 80177; 80307; 81003; 82565; 82947; 83735; 83880; 84100; 84436; 84443; 84484; 85025; 85610; 85652; 85730; 86140; 93005; 93306; 93970; 95816; 96361; 96365; 97112; 97116; 97161; 97530; 99285; J1650; J1953; J2405; J7030; Q2009; Q9967; U0003